=== PATIENT | female | born 1980 | race Caucasian/White ===

== ENCOUNTER → 2020-01-26 13:48 | Outpatient (BNVA) | payer MEDICAID, SELFPAY | PROVIDERS: PCP Family Medicine; Referring Provider Family Medicine; Visit Provider Family Medicine | DX: M25.511 Pain in right shoulder (principal) | CPT/HCPCS: 73030 ==

== ENCOUNTER 2020-08-12 09:57 | Outpatient (CLI) | payer MEDICAID, SELFPAY ==
--- NOTE | 2020-08-12 10:32 | MM_ITS ---
WS: [id number] DIAGNOSTIC BILATERAL DIGITAL MAMMOGRAM WITH CAD Bilateral breast ultrasound, complete HISTORY: PAINFUL LUMPY BREAST COMPARISON: None available. TECHNIQUE: Bilateral craniocaudad, mediolateral oblique, and mediolateral views are submitted. Spot c ompression LEFT CC. Computer aided detection utilized. Breast composition: The breasts are extremely dense, which lowers the sensitivity of mammography. No architectural distortion, mass or calcification. No nipple retraction. Bilateral breast ultrasound. Complete bilateral breast ultrasound is performed. No suspicious masses or shadowing. No cystic or s olid masses or skin thickening. MM/[place] [id number] IMPRESSION: BI-RADS: 1-Negative FOLLOW UP: 1 Year Follow-up
--- NOTE | 2020-08-12 11:00 | US_ITS ---
WS: [id number] DIAGNOSTIC BILATERAL DIGITAL MAMMOGRAM WITH CAD Bilateral breast ultrasound, complete HISTORY: PAINFUL LUMPY BREAST COMPARISON: None available. TECHNIQUE: Bilateral craniocaudad, mediolateral oblique, and mediolateral views are submitted. Spot c ompression LEFT CC. Computer aided detection utilized. Breast composition: The breasts are extremely dense, which lowers the sensitivity of mammography. No architectural distortion, mass or calcification. No nipple retraction. Bilateral breast ultrasound. Complete bilateral breast ultrasound is performed. No suspicious masses or shadowing. No cystic or s olid masses or skin thickening. US/[place] breast [place] complete [id number] IMPRESSION: BI-RADS: 1-Negative FOLLOW UP: 1 Year Follow-up
== END 2020-08-12 09:58 | disposition home or self-care (01) ==
LOC: RADSHAW 09:59
PROVIDERS: PCP Family Medicine; Visit Provider Registered Nurse
DX: N64.4 Mastodynia (principal); N63.20 Unspecified lump in the left breast, unspecified quadrant
CPT/HCPCS: 76641; 77066

== ENCOUNTER 2021-10-03 09:59 | Outpatient (CLI) | payer MEDICAID, SELFPAY | END 2021-10-03 10:00 | disposition home or self-care (01) | LOC: WOUND 10:00 | PROVIDERS: PCP Family Medicine; Visit Provider Emergency Medicine | DX: S61.201A Unspecified open wound of left index finger without damage to nail, initial encounter (principal); X58.XXXA Exposure to other specified factors, initial encounter; F17.210 Nicotine dependence, cigarettes, uncomplicated; I10 Essential (primary) hypertension; E10.9 Type 1 diabetes mellitus without complications | CPT/HCPCS: 11042; G0463 ==

== ENCOUNTER 2021-10-10 09:48 | Outpatient (CLI) | payer MEDICAID, SELFPAY | END 2021-10-10 09:49 | disposition home or self-care (01) | LOC: WOUND 09:49 | PROVIDERS: PCP Family Medicine; Visit Provider Nurse Practitioner Family | DX: I96 Gangrene, not elsewhere classified (principal); L98.492 Non-pressure chronic ulcer of skin of other sites with fat layer exposed; F17.210 Nicotine dependence, cigarettes, uncomplicated; E10.9 Type 1 diabetes mellitus without complications; I10 Essential (primary) hypertension | CPT/HCPCS: 11042 ==

== ENCOUNTER 2021-10-24 08:10 | Outpatient (CLI) | payer MEDICAID, SELFPAY | END 2021-10-24 08:11 | disposition home or self-care (01) | LOC: WOUND 08:11 | PROVIDERS: PCP Family Medicine; Visit Provider Thoracic Surgery (Cardiothoracic Vascular Surgery) | DX: I96 Gangrene, not elsewhere classified (principal); L98.492 Non-pressure chronic ulcer of skin of other sites with fat layer exposed; F17.210 Nicotine dependence, cigarettes, uncomplicated; E10.9 Type 1 diabetes mellitus without complications; I10 Essential (primary) hypertension | CPT/HCPCS: 97597 ==

== ENCOUNTER 2021-10-31 08:12 | Outpatient (CLI) | payer MEDICAID, SELFPAY | END 2021-10-31 08:13 | disposition home or self-care (01) | LOC: WOUND 08:13 | PROVIDERS: PCP Family Medicine; Visit Provider Thoracic Surgery (Cardiothoracic Vascular Surgery) | DX: A49.02 Methicillin resistant Staphylococcus aureus infection, unspecified site (principal); L98.492 Non-pressure chronic ulcer of skin of other sites with fat layer exposed; F17.210 Nicotine dependence, cigarettes, uncomplicated; E10.9 Type 1 diabetes mellitus without complications | CPT/HCPCS: 97597 ==

== ENCOUNTER → 2023-02-24 11:07 | Outpatient (BNVA) | payer MEDICAID, SELFPAY | PROVIDERS: PCP Family Medicine; Visit Provider Nurse Practitioner | DX: R39.9 Unspecified symptoms and signs involving the genitourinary system (principal) | CPT/HCPCS: 81000 ==

== ENCOUNTER → 2023-04-18 10:24 | Outpatient (BNVA) | payer MEDICAID, SELFPAY | PROVIDERS: PCP Family Medicine; Visit Provider Nurse Practitioner Family | DX: Z20.2 Contact with and (suspected) exposure to infections with a predominantly sexual mode of transmission (principal) | CPT/HCPCS: 87491; 87591 ==

== ENCOUNTER → 2023-06-20 11:02 | Outpatient (BNVA) | payer MEDICAID, SELFPAY | PROVIDERS: PCP Family Medicine; Visit Provider Emergency Medicine | DX: M79.671 Pain in right foot (principal); E11.621 Type 2 diabetes mellitus with foot ulcer; L97.509 Non-pressure chronic ulcer of other part of unspecified foot with unspecified severity | CPT/HCPCS: 73630 ==

== ENCOUNTER 2023-07-02 09:22 | Inpatient (IN) | payer MEDICAID, SELFPAY ==
[2023-07-02] VITALS (23 sets, daily range): BP systolic 118–201; BP diastolic 62–119; PULSE 70–89; RESP 10–22; TEMP 36.2–36.6; O2SAT 94–100; BMI 24.3
--- NOTE | 2023-07-02 09:31 | XRR_ITS ---
PROCEDURE INFORMATION: Exam: XR Right Foot Exam date and time: 07/02/2023 9:42 AM Age: 43 years old Clinical indication: Condition or disease; Other: Open sore on RT foot; Additional info: Trauma TECHNIQUE: Imaging protocol: Radiologic exam of the right foot. Views: 3 or more views. COMPARISON: 1. CR XR foot RT min 3V* [id number] 06/20/2023 11:13 AM 2. CR XR foot RT min 3V* [id number] 01/28/2019 4:47 PM FINDINGS: Bones/joints: No acute fracture or dislocation. Stable chronic appearing destructive changes with sclerosis and fragmentation at the great toe IP joint. Abnormal cystic and sclerotic destruction of the distal 3rd metatarsal is also stable, as is remodeled morphology at the proximal 3rd proximal phalanx and mild chronic erosion/flattening of the lateral 2nd metatarsal head and medial 4th metatarsal head. Appearance of distal phalangeal acro osteolysis on the lateral view is also redemonstrated. Chronic flexion deformity of the 2nd toe and medial deviation of the 4th toe. No new focal osteopenia. Soft tissues: Soft tissue contour irregularity at a distal toe on the lateral view. XR/XR foot RT min 3V* [id number] IMPRESSION: 1. No acute osseous findings. 2. Chronic abnormal changes as above.
--- NOTE | 2023-07-02 09:31 | XRR_ITS ---
PROCEDURE INFORMATION: Exam: XR Right Ankle Exam date and time: 07/02/2023 9:42 AM Age: 43 years old Clinical indication: Condition or disease; Other: Open sore on RT foot; Additional info: Trauma TECHNIQUE: Imaging protocol: Radiologic exam of the right ankle. Views: 3 or more views. COMPARISON: CR XR foot RT min 3V* [id number] 06/20/2023 11:13 AM FINDINGS: Bones/joints: No acute fracture or dislocation. Mineralization is normal. Joint spacing and alignment are anatomic. Soft tissues: Unremarkable. XR/XR ankle RT min 3V* [id number] IMPRESSION: No acute findings.
--- NOTE | 2023-07-02 09:37 | ECG_ITS ---
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 Measurements Intervals [place] Rate: 81 P: 61 RI: 139 QRS: -56 QRSD: 97 T: 45 QT: 365 QTc: 424 Interpretive Statements SINUS RHYTHM LEFT ANTERIOR FASCICULAR BLOCK [QRS AXIS <= -45, QR IN I, RS IN II] POSSIBLE ANTERIOR MYOCARDIAL INFARCTION , OF INDETERMINATE AGE [30 ms Q WAVE IN V3/V4, OR R < 0.2 mV IN V4] Compared to ECG 09/04/2019 10:06:54 Myocardial infarct finding now present Incomplete right bundle-branch block no longer present Electronically Signed On 07-02-2023 12:00:38 CDT by Lazara Cabrera M.D. [id number]
[2023-07-02 10:01] LABS: Amphetamines Screen Urine Negative (Negative); Barbiturates Screen Urine Negative (Negative); Benzodiazepines Screen Urine Negative (Negative); Cocaine Screen Urine Negative (Negative); Opiate Screen Urine Negative (Negative); PCP Screen Urine Negative (Negative); THC Screen Urine Positive (Negative)
--- NOTE | 2023-07-02 10:10 | ED_ITS ---
HPI - Wound/Laceration General: Chief Complaint: Wound/Laceration Stated Complaint: RT foot inj Time Seen by Provider: 07/02/23 09:22 Source: patient Mode of arrival: wheelchair History of Present Illness: 43-year-old female presents emergency room with right foot pain. She states about 2 weeks ago she stepped on a stone and had a little injuries she was seen for it and evaluated there is no acute fracture or infection this is on June 20. Since then she has been soaking and Epsom salt is gotten red and inflamed increasingly tender. She has some drainage from the foot as well. On arrival here she has a bandage in place. She has had subjective low-grade fevers at home. Previous x-rays showed chronic changes of the distal third metatarsal and the first MP joint. Onset (ago): week(s) (2) Extremity Location: Right: foot Context: accidental Associated symptoms: Reports chills, fever(s) and pain; Denies nausea or vomiting Review of Systems Const: Reports: fever(s) and chills Card: Reports: edema; Denies: chest pain or palpitations Resp: Denies: dyspnea, productive cough or non-productive cough GI: Denies: abdominal pain, nausea or vomiting : Denies: flank pain, difficulty voiding, dysuria, urinary frequency or urinary urgency Skin/Breast: Denies: rash or pruritus [facility] ED PFSH: Medical History (Updated 07/02/23 @ 12:08 by Dennis James DO) Diabetic neuropathy Type 1 diabetes mellitus Social History Smoking and tobacco status: current every day smoker cigarettes Packs smoked per day: 1 Alcohol intake: never Substance/Drug Use: never Physical Exam Const: GENERAL APPEARANCE: cooperative and comfortable ORIENTATION/CONSCIOUSNESS: Yes awake, Yes oriented to person, Yes oriented to place and Yes oriented to time HENMT: COMMON NORMALS: normocephalic, atraumatic and hearing grossly normal bilaterally HEAD & SCALP: normocephalic and atraumatic Resp: COMMON NORMALS: normal respiratory effort, No retractions, No use of accessory muscles and clear to auscultation bilaterally AUSCULTATION: clear to auscultation bilaterally Cardio: COMMON NORMALS: regular rate, regular rhythm and No murmurs present (Cardio) RATE: regular rate RHYTHM: regular rhythm GI: COMMON NORMALS: Soft to palpation and No hepatosplenomegaly present AUSCULTATION: Yes normoactive bowel sounds PALPATION: Yes Soft to palpation, No Tenderness to palpation present (GI), No Guarding due to palpation present (GI) and Yes No hepatosplenomegaly present Extremity: OTHER: Right foot red and inflamed along the medial aspect of the foot at the arch. There is several open macerated wounds with serous drainage no noticeable abscesses. There are some localized erythema with some proximal lymphangitic spread. Dorsalis pedis and posterior tibialis pulse palpable Neuro: SENSORIUM/ORIENTATION: Yes oriented to person, Yes oriented to place a nd Yes oriented to time Skin: COMMON NORMALS: no rashes or lesions noted GENERAL SKIN EXAM: no rashes or lesions noted Course Vital Signs: Vital signs: Vital Signs Pulse Rate 89 07/02/23 09:37 Respiratory Rate 18 07/02/23 09:37 Blood Pressure 201/100 07/02/23 09:37 Pulse Oximetry 98 07/02/23 09:37 Oxygen Delivery Me thod Room Air 07/02/23 09:37 MDM - Wound/Laceration Medical Decision Making Patient has a fairly extensive cellulitis of her foot with some open areas or some small will may be superficial abscesses. Podiatry was consulted to evaluate debriding these to get cultures. Blood cultures have been obtained. She is immunocompromise given the medications she is taking for psoriatic arthritiis, in addition to her diabetes. She does have good peripheral pulses. Her CRP is only 6.5 we did not do any advanced imaging we will consult with hospitalist and podiatry to see what they prefer to get she has had cultures and started initially on vancomycin. She initially listed a penicillin allergy Dr. Arana talk to the patient and felt that that was not actually a valid allergy she had previously taken penicillin rather recently without difficulty so that was removed from the chart. She is started on Unasyn (in addition to vancomycin) out of concern for the skin abscesses at 2 different sites. Medical Records I reviewed the patient's medical records. Lab Data I reviewed the patient's lab results. 07/02/23 09:55 07/02/23 09:55 Radiology Impressions Ankle X-Ray 07/02/23 09:31 IMPRESSION: No acute findings. Foot X-Ray 07/02/23 09:31 IMPRESSION: 1. No acute osseous findings. 2. Chronic abnormal changes as above. Laboratory Results WBC 10.9 10^3/uL (4.0-10.0) H 07/02/23 09:55 RBC 5.20 10^6/uL (4.1-5.3) 07/02/23 09:55 Hgb 14.4 g/dL (11.5-15.3) 07/02/23 09:55 Hct 44.7 % (37.0-47.0) 07/02/23 09:55 MCV 86.0 fl (81-99) 07/02/23 09:55 MCH 27.7 pg (28.0-34.0) L 07/02/23 09:55 MCHC 32.2 g/dL (30.0-36.0) 07/02/23 09:55 RDW 13.7 % (12.1-15.1) 07/02/23 09:55 Plt Count 377 10^3/cmm (130-400) 07/02/23 09:55 MPV 10.4 fL (7.4-10.4) 07/02/23 09:55 Neut % (Auto) 72.8 % 07/02/23 09:55 Lymph % (Auto) 17.8 % 07/02/23 09:55 [place] % (Auto) 5.6 % 07/02/23 09:55 Eos % (Auto) 2.0 % 07/02/23 09:55 Baso % (Auto) 1.1 % 07/02/23 09:55 Neut # (Auto) 7.90 10^3/uL (1.8-7.7) H 07/02/23 09:55 Lymph # (Auto) 1.9 10^3/uL (0.8-4.8) 07/02/23 09:55 [place] # (Auto) 0.6 10^3/uL (0.2-0.9) 07/02/23 09:55 Eos # (Auto) 0.2 10^3/uL (0.0-0.8) 07/02/23 09:55 Baso # (Auto) 0.1 10^3/uL (0.0-0.1) 07/02/23 09:55 Nucleated RBC % (auto) 0 % 07/02/23 09:55 Nucleated RBCs # 0.0 /100WBC 07/02/23 09:55 Sodium 132 mmol/L (136-145) L 07/02/23 09:55 Potassium 4.8 mmol/L (3.5-5.1) 07/02/23 09:55 Chloride 95 mmol/L (98-107) L 07/02/23 09:55 Carbon Dioxide 29 mmol/L (22-29) 07/02/23 09:55 Anion Gap 12.8 (5-19) 07/02/23 09:55 BUN 21 mg/dL (6-20) H 07/02/23 09:55 Creatinine 1.2 mg/dL (0.5-0.9) H 07/02/23 09:55 GFR Calculation 49.0 mL/min (90-130) L 07/02/23 09:55 Glucose 188 mg/dL (65-115) H 07/02/23 09:55 Calculated Osmolality 282 mOsm/kg (285-295) L 07/02/23 09:55 Lactic Acid 1.2 mmol/L (0.5-2.2) 07/02/23 09:55 Calcium 9.8 mg/dL (8.5-10.5) 07/02/23 09:55 Total Bilirubin 0.2 mg/dL (0.15-1.2) 07/02/23 09:55 AST 24 U/L (0-32) 07/02/23 09:55 ALT 22 U/L (0-33) 07/02/23 09:55 Alkaline Phosphatase 110 U/L (35-105) H 07/02/23 09:55 C-Reactive Protein 6.6 mg/L (0.0-4.9) H 07/02/23 09:55 C-Reactive Protein Cancelled 07/02/23 09:55 Total Protein 8.0 g/dL (6.6-8.7) 07/02/23 09:55 Albumin 4.1 g/dL (3.5-5.2) 07/02/23 09:55 Globulin 3.9 g/dL (1.3-4.6) 07/02/23 09:55 Urine Color Yellow (Yellow) 07/02/23 09:30 Urine Appearance Sl hazy (CLEAR) A 07/02/23 09:30 Urine pH 7 (5-7) 07/02/23 09:30 Ur Specific [place] 1.005 (1.005-1.030) 07/02/23 09:30 Urine Protein Trace (Negative) 07/02/23 09:30 Urine Glucose (UA) 2+ (Normal) H 07/02/23 09:30 Urine Ketones Negative (Negative) 07/02/23 09:30 Urine Blood Trace (Negative) H 07/02/23 09:30 Urine Nitrate Negative (Negative) 07/02/23 09:30 Urine Bilirubin Neg (Negative) 07/02/23 09:30 Urine Urobilinogen Norm mg/dL (Negative) 07/02/23 09:30 Ur Leukocyte Esterase Negative (Negative) 07/02/23 09:30 Urine RBC 0-4 /hpf (0-2) H 07/02/23 09:30 Urine WBC 0-4 /hpf (0-5) H 07/02/23 09:30 Ur Squamous Epith Cells 5-10 /hpf (0-5) H 07/02/23 09:30 Amorphous Sediment Not Reportable 07/02/23 09:30 Urine Bacteria Trace /hpf (NONE) 07/02/23 09:30 Urine Mucus Trace /hpf 07/02/23 09:30 Urine Opiates Screen Negative ng/mL (Negative) 07/02/23 09:30 Ur Barbiturates Screen Negative ng/mL (Negative) 07/02/23 09:30 Ur Phencyclidine Scrn Negative ng/mL (Negative) 07/02/23 09:30 Ur Amphetamines Screen Negative ng/mL (Negative) 07/02/23 09:30 U Benzodiazepines Scrn Negative ng/mL (Negative) 07/02/23 09:30 Urine Cocaine Screen Negative ng/mL (Negative) 07/02/23 09:30 U Marijuana (THC) Screen Positive ng/mL (Negative) H 07/02/23 09:30 Discharge Plan Discharge Patient Disposition: Admitted As Inpatient Clinical Impression: Diabetic foot infection, Type 1 diabetes mellitus, Abscess of antecubital fossa Condition: Stable Prescriptions: No Action Lantus Solostar U-100 Insulin 100 unit/mL (3 mL) insulin pen 30 unit SUBCUT DAILY Rx Instructions: every morning (DME) InPen (for Novolog or Fiasp) Insulin Pen See Rx Instructions .ROUTE .MEDSUPPLY Qty: 1 Rx Instructions: As directed gabapentin 600 mg tablet 600 mg PO TID Novolog FlexPen U-100 Insulin 100 unit/mL (3 mL) insulin pen See Rx Instructions .ROUTE .COMPLEX Rx Instructions: PER SLIDING SCALE THREE TIMES DAILY NEEDED. MAX 45 UNITS DAILY leflunomide 20 mg tablet 20 mg PO DAILY metoclopramide HCl 10 mg tablet 10 mg PO TID Rx Instructions: BEFORE MEALS ibuprofen 200 mg Tablet 800 mg PO Q6H PRN (Reason: Pain) levothyroxine 125 mcg tablet 150 mcg PO .CLINICAL PARTNER Referrals: Latha Tsang DO [Primary Care Provider] - Coding Level of Care Code ED Program Director/Music Director for Maryjo Junior
[2023-07-02 10:18] LABS: Add Urine Microscopic? YES; Bilirubin Urine Neg (Negative); Blood Urine Trace (Negative); Glucose Urine UA 2+ (Normal); Ketones Urine Negative (Negative); Leukocyte Esterase Urine Negative (Negative); Nitrate Urine Negative (Negative); Protein Urine Trace (Negative); Specific Gravity, Urine 1.005 (1.005-1.030); Urine Color Yellow (Yellow); Urobilinogen Urine Norm (Negative); pH Urine 7 (5-7)
[2023-07-02 10:19] LABS: Add Urine Culture? No; Bacteria Urine TRACE /hpf; Mucus Urine TRACE /hpf; RBC Urine 0-4 /hpf (0-2); Urine Appearance SL Hazy (CLEAR); WBC Urine 0-4 /hpf (0-5)
[2023-07-02 10:28] LABS: Basophils # 0.1 10^3/uL (0.0-0.1); Basophils % 1.1 %; Eosinophils # 0.2 10^3/uL (0.0-0.8); Hematocrit 44.7 % (37.0-47.0); Hemoglobin 14.4 g/dL (11.5-15.3); Lymphocytes # 1.9 10^3/uL (0.8-4.8); Lymphocytes % 17.8 %; Mean Corpuscular HGB Conc 32.2 g/dL (30.0-36.0); Mean Corpuscular Hemoglobin 27.7 pg (28.0-34.0); Mean Platelet Volume 10.4 fL (7.4-10.4); Monocytes # 0.6 10^3/uL (0.2-0.9); Monocytes % 5.6 %; Neutrophils % 72.8 %; Nucleated Red Blood Cells % 0 %; Platelet Count 377 10^3/cmm (130-400); Red Cell Distribution Width 13.7 % (12.1-15.1); White Blood Count 10.9 10^3/uL (4.0-10.0)
[2023-07-02 10:35] LABS: Lactic Sepsis W/Reflex 1.2 mmol/L (0.5-2.2)
[2023-07-02 10:36] LABS: Alanine Aminotransferase 22 U/L (0-33); Albumin Level 4.1 g/dL (3.5-5.2); Alkaline Phosphatase 110 U/L (35-105); Anion Gap 12.8 (5-19); Aspartate Amino Transferase 24 U/L (0-32); Blood Urea Nitrogen 21 mg/dL (6-20); C Reactive Protein 6.6 mg/L (0.0-4.9); Calcium 9.8 mg/dL (8.5-10.5); Carbon Dioxide 29 mmol/L (22-29); Chloride 95 mmol/L (98-107); Globulin 3.9 g/dL (1.3-4.6); Glucose 188 mg/dL (65-115); Osmolality Calculated 282 mOsm/kg (285-295); Potassium 4.8 mmol/L (3.5-5.1); Sodium 132 mmol/L (136-145); Total Bilirubin 0.2 mg/dL (0.15-1.2)
[2023-07-02] MEDS: ondansetron 2 mg/ML SDV 2 mL 4 MG IVP (10:54)
[2023-07-02] MEDS: vancomycin 1,000 MG in sodium chloride 0.9% 250 ML 250 MG IV (10:55)
[2023-07-02] MEDS: diphenhydrAMINE 50 mg/mL SDV 1mL IVP (11:13)
[2023-07-02] MEDS: morphine 4 mg/mL SDV 1 mL 2 MG IVP (11:13)
--- NOTE | 2023-07-02 11:18 | US_ITS ---
WS: [id number] ULTRASOUND SOFT TISSUES right antecubital fossa. HISTORY: antecubital fossa R COMPARISON: None available. TECHNIQUE: 2-D and color Doppler imaging is submitted. In the right antecubital fossa is a mild soft tissue thickening with edema. This is located within th e subcutaneous soft tissue. Edema with no wall or increased vascularity. IMPRESSION: Subcutaneous edema in the right antecubital fossa. No abscess at this time.
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
[2023-07-02 12:06] LABS: Estmated Average Glucose 229; Hemoglobin A1C 9.6 % (4.0-6.0)
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
[2023-07-02] MEDS: ampicillin-sulbactam 3 GM in sodium chloride 0.9% (plus) 50 ML IV ×2 (13:18→20:19)
[2023-07-02] MEDS: HYDROmorphone 1 mg/mL INJ 1 mL 0.5 MG IVP ×2 (14:44→16:13)
[2023-07-02] MEDS: sodium chloride 0.9% 1,000 ML 30 ML IV (14:46)
[2023-07-02 15:00] LABS: Glucose Point of Care 166 mg/dL (70-110)
--- NOTE | 2023-07-02 15:10 | W.PM.OPSUD ---
Surgery/Procedure H&P Update DATE OF PROCEDURE: July 02, 2023 DATE H&P PERFORMED: 07/02/23 H&P UPDATE INFORMATION: I have reviewed H&P completed within last 30 days, I have examined patient prior to procedure, No changes to prior documentation and H&P is in [facility] EMR on date indicated CHANGES TO PREVIOUS DOCUMENTATION: None PREOP DIAGNOSIS: Right diabetic foot infection PLANNED PROCEDURE: Operation Date: 07/02/23 15:00 Proposed Procedures p Incision And Drainage(Right) - Maverick Bolanos DPM
--- NOTE | 2023-07-02 15:11 | P.OP_ITS ---
Operative Report Date of procedure: July 02, 2023 Pre-op diagnosis: Preop Diagnosis Right diabetic foot infection Post-op diagnosis: Diabetic foot ulcer right foot down to myofascial layer Post-op findings: Cluster wounds at the right foot plantar instep tracking distal and dorsal. Procedure done: Incision and debridement down to myofascial layer right foot Implants: None Specimens removed/disposition: Deep soft tissue and myofascial layer right plantar foot taken intraoperatively and sent to microbiology for Gram stain, culture and sensitivity. Pathology: None Surgeon: Maverick Bolanos D.P.M. Tape Cutting Machine Operator: none Estimated blood loss: 25 112 IV fluids: 0 Urine output: 0 Complications: 0 Brief History: Alexa Chang is a 43 year old uncontrolled diabetic female presents to the emergency department with complaints of a wound to the right foot with increased redness and drainage, pain and subjective fevers.? She reports the initial wound happened from walking barefoot on rocks the beginning of June.? Wound has progressed and last night she saw a red streaking and began feeling nausea and chills.? Patient has a history of osteomyelitis being managed both medically and surgically at [facility] in [place], history of surgical debridement to the right great toe and right third metatarsal.? She had a piece of toast and something to drink at 7:00 this morning for breakfast, states that she ate very little due to nausea and decreased appetite. -Remain n.p.o. -X-ray right foot negative for foreign body, negative for soft tissue edema.? Stable erosive changes at the right hallux and right third metatarsal from chronic osteomyelitis noncontributory to current infection. -Wound cultures taken right foot sent to microbiology for Gram stain, culture and sensitivity -Betadine wet-to-dry dressing to the right foot. -Planning on surgical debridement of right foot wound at 3:00, this will be 8 hours from the time she last ate. -Empiric IV antibiotics initiated.? May narrow once cultures yield further information. Procedure: Under mild sedation the patient was brought to the operating room and remained on the gurney in supine position. A timeout was performed. Anesthesia was then administered by the anesthesia service. Local anesthesia injected by myself consisting of 30 cc of one-to-one mixture 1% lidocaine and 0.5% Marcaine plain in a right ankle block fashion. Well-padded pneumatic tourniquet was applied to the right high calf. The right lower extremity was scrubbed, prepped and draped utilizing normal aseptic technique. Right foot was elevated and tourniquet inflated to 250 mmHg. Attention was directed to the plantar aspect of the right foot where a cluster of wounds was appreciated, a total of 4 wounds visualized, the most lateral wound corresponding to interspace between third and fourth metatarsals plantarly tracked the furthest, there was tracking distally and superiorly, did not probe directly to bone. The wounds of the right plantar forefoot were sharply and excisionally debrided with pickups and a #15 blade down to and including myofascial layer. Wounds were debrided of devitalized tissue. Postdebridement wound measurements at the most lateral aspect of the plantar forefoot measured 1.2 cm x 1.3 cm and depth was 2.5 cm. There was no tracking proximally. Unable to probe to bone from any of the wounds. Dressing was irrigated with copious amounts of Staticin solution. Deep tissue was taken intraoperatively sharply and sent to microbiology for Gram stain, culture and sensitivity. Further irrigation was performed with copious amounts of sterile skin solution followed by dressing consisting of saline wet-to-dry utilizing sterile saline, 4 x 4 gauze, ABD pad, Kerlix and 4 inch Coban. Tourniquet was deflated and a prompt hyperemic response was noted to the distal digits of the right foot. Patient tolerated the procedure and anesthesia well and was transferred to the PACU with vital signs stable and vascular status intact. Following a period of postoperative monitoring she will be transferred back to the floor. Will continue empiric IV antibiotics. Is to elevate her right foot while resting. Nonweightbearing to the right foot, may heel touch for transfers.
[2023-07-02 15:16] LABS: OR HCG Qualitative Urine Negative (Negative)
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
[2023-07-02] MEDS: lidocaine 2% INJ 20 mL INJECTION (15:34)
[2023-07-02] MEDS: BUPivacaine 0.5% INJ 30 mL INJECTION (15:34)
[2023-07-02] MEDS: fentaNYL 50 mcg/mL INJ 2mL IVP (15:58)
--- NOTE | 2023-07-02 16:12 | PC.NURSE ---
Continues to be in pain. Giving Dilaudid per Dr. Bates
--- NOTE | 2023-07-02 16:13 | ANE.PACU2 ---
Inpatient post-anesthesia follow up: Airway intact: Yes Vital signs: Temperature 97.1 F Pulse Rate 70 Respiratory Rate 22 Blood Pressure 121/78 Pulse Oximetry 100 Oxygen Delivery Me thod Simple Mask Oxygen Flow Rate 8 Fraction of Inspir ed Oxygen Hydration adequate: Yes Nausea and vomiting: No Pain level: 2 Mental status: Baseline
[2023-07-02] MEDS: metoclopramide 10 mg Tablet PO (17:25)
[2023-07-02] MEDS: gabapentin 300 mg Capsule 600 MG PO ×2 (17:26→20:18)
[2023-07-02] MEDS: ALPRAZolam 0.5 mg Tablet PO (17:27)
[2023-07-02] MEDS: docusate sodium 100 mg Capsule PO (17:27)
[2023-07-02] MEDS: morphine 4 mg/mL SDV 1 mL IVP ×2 (17:27→21:55)
[2023-07-02 18:06] LABS: Glucose Point of Care 46 mg/dL (70-110)
[2023-07-02 18:28] LABS: Glucose Point of Care 48 mg/dL (70-110)
[2023-07-02] MEDS: sodium chloride 0.9% 1,000 ML 75 ML IV (18:59)
--- NOTE | 2023-07-02 19:21 | PC.PHAR ---
Patient: Floor: Age: 43 yo Serum creatinine: 1.2 mg/dL Height: 67.7 Inches Weight (kg): 72 IBW (kg): 63.21 Dosing wt(kg): 72 Estimated Creatinine clearance (ml/min): 60.3 CRCL method: Cockcroft and Gault using ibw(default). Drug selected: Vancomycin Loading dose (mg): Vd (liters): 50.4 (factor used: 0.7 L/kg) Alan (hr-1): 0.054 Half life (hrs): 12.84 CLvanco=?? 2.722 L/hr Recommended dose: 1250 mg Interval: 18 hrs Infusion time (hrs): 1 Predicted peak (mcg/mL): 38.8 Predicted trough (mcg/mL): 15.49 Total body weight is being used for vancomycin dosing. Recommendations: Give Vancomycin 1250 mg q 18 hrs with an expected Cpeak of 38.8 mcg/ml and an expected Ctrough of 15.49 mcg/ml AUC 0-24 /NAILA Data: NAILA 0.5 mcg/mL:?? AUC/NAILA:? 1224.6 NAILA 1.0 mcg/mL:?? AUC/NAILA:? 612.3 --------- NAILA 1.5 mcg/mL:?? AUC/NAILA:? 408.2 NAILA 2.0 mcg/mL:?? AUC/NAILA:? 306.1 Renal dosing of other antibiotics (review renal dosing of other medications and list guidelines here): Thank you for the consult, will continue to follow. Signature: Joss Zhu PharmD
[2023-07-02] MEDS: oxyCODONE 5 mg IR Tab/Cap 10 MG PO (20:17)
[2023-07-02] MEDS: sennosides 8.6 mg Tablet 17.2 MG PO (20:18)
[2023-07-02 20:34] LABS: Glucose Point of Care 230 mg/dL (70-110)
[2023-07-02] MEDS: vancomycin 1,250 MG/250 ML PIGGYBACK 200 MG IV (21:55)
[2023-07-02] MEDS: insulin lispro 100 unit/1 mL SUBCUT (21:56)
[2023-07-03] VITALS (15 sets, daily range): BP systolic 112–159; BP diastolic 71–91; PULSE 77–91; RESP 16–18; TEMP 36.4–36.8; O2SAT 96–100
[2023-07-03] MEDS: ampicillin-sulbactam 3 GM in sodium chloride 0.9% (plus) 50 ML IV ×4 (02:25→20:33)
[2023-07-03] MEDS: morphine 4 mg/mL SDV 1 mL IVP ×5 (02:34→20:50)
[2023-07-03 02:39] LABS: Glucose Point of Care 46 mg/dL (70-110)
[2023-07-03 04:19] LABS: Glucose Point of Care 128 mg/dL (70-110)
[2023-07-03 05:10] LABS: Basophils # 0.1 10^3/uL (0.0-0.1); Basophils % 0.8 %; Eosinophils # 0.3 10^3/uL (0.0-0.8); Eosinophils % 2.3 %; Hematocrit 37.1 % (37.0-47.0); Hemoglobin 11.9 g/dL (11.5-15.3); Lymphocytes # 2.1 10^3/uL (0.8-4.8); Lymphocytes % 17.1 %; Mean Corpuscular HGB Conc 32.1 g/dL (30.0-36.0); Mean Corpuscular Hemoglobin 28.2 pg (28.0-34.0); Mean Corpuscular Volume 87.9 fl (81-99); Mean Platelet Volume 10.2 fL (7.4-10.4); Monocytes # 0.7 10^3/uL (0.2-0.9); Neutrophils % 73.2 %; Nucleated Red Blood Cells % 0 %; Platelet Count 304 10^3/cmm (130-400); Red Blood Count 4.22 10^6/uL (4.1-5.3)
[2023-07-03 05:40] LABS: Blood Urea Nitrogen 19 mg/dL (6-20); Calcium 8.3 mg/dL (8.5-10.5); Carbon Dioxide 26 mmol/L (22-29); Chloride 102 mmol/L (98-107); Glomerular Filtration Rate 60.5 mL/min (90-130); Glucose 89 mg/dL (65-115); Magnesium 1.8 mg/dL (1.7-2.3); Osmolality Calculated 284 mOsm/kg (285-295); Phosphorus 4.2 mg/dL (2.5-4.5); Sodium 136 mmol/L (136-145)
[2023-07-03 05:46] LABS: Anion Gap 12.3 (5-19); Potassium 4.3 mmol/L (3.5-5.1)
[2023-07-03] MEDS: sodium chloride 0.9% 1,000 ML 75 ML IV ×2 (05:55→20:33)
[2023-07-03] MEDS: levothyroxine 125 mcg Tablet 150 MCG PO (05:57)
[2023-07-03] MEDS: ibuprofen 800 mg tablet PO ×2 (05:57→22:29)
--- NOTE | 2023-07-03 06:00 | MR_ITS ---
WS: [id number] EXAMINATION: MR foot RT wo/w con [id number] ORDER DATE: 07/03/2023 9:44 AM COMPARISON: Radiograph 07/02/2023 HISTORY: abscess/diabetic foot, underlying bone changes TECHNIQUE: Sagittal T1, sagittal STIR, coronal PD, coronal T2, axial T1, axial T2, and axial PD imagi ng with fat saturation technique. Post gadolinium imaging includes axial T1, coronal T1, and sagittal T1 with fat saturation technique. FINDINGS: Chronic appearing destructive changes with sclerosis and fragmentation involving the first DIP joint. Hammertoe deformities. Erosions with sclerosis involving the third metatarsal head with na rrowing of the third MTP joint. Chronic erosive changes involving the IP joints. Loss of the normal fatty bone marrow signal with destructive changes involving the third metatarsal h ead extending across the MTP joint into the proximal phalanx. Bony changes in this area appear simila r dating back to 2018. Mild enhancement and bone marrow edema in this area suspicious for osteomyelit is. Enhancement in the third MTP joint. Suspect this may be due to chronic or partially treated indol ent osteomyelitis in this area Subcutaneous edema involving the plantar soft tissues. Ulceration along the plantar aspect of the mid foot in the midline. Associated subcutaneous edema and reactive enhancement likely due to inflammator y changes and cellulitis No evidence of drainable abscess or drainable fluid collection. Normal underlying bone marrow signal. Associated skin thickening in the plantar soft tissues with edema. Distal Achilles is normal in appe arance. Normal bone marrow signal in the talus and calcaneus. Plantar soft tissue edema extends into the intertarsal soft tissues. No other acute findings. IMPRESSION: 1. No evidence of drainable abscess or fluid collection. 2. Loss of the normal bone marrow signal with mild bone marrow edema and enhancement involving the t hird metatarsal head extending into the third proximal phalanx. Fluid and enhancement in the MTP join t space. Findings suspicious for osteomyelitis. Suspect findings due to chronic or partially osteomye litis considering bony changes were present dating back to 2018 in this area 3. Cellulitis with soft tissue edema and enhancement along the plantar soft tissues with intertarsal extension. 4. No other evidence of osteomyelitis. 5. Additional chronic changes described above
[2023-07-03 06:21] LABS: Glucose Point of Care 216 mg/dL (70-110)
[2023-07-03] MEDS: oxyCODONE 5 mg IR Tab/Cap 10 MG PO ×3 (06:48→20:09)
--- NOTE | 2023-07-03 07:27 | P.PN_ITS ---
Subjective Subjective: Patient seen bedside this morning. Denies any acute events overnight. 1 day status post incision and debridement down to myofascial layer right foot secondary to diabetic foot infection. Has pain when she bears weight to go to the bathroom otherwise she is comfortable. Patient denies any subjective nausea, vomiting, fever, chills, shortness of breath or chest pain. Vitals/I&O/Wt Last Vital Signs Temp 97.8 F 07/03/23 03:57 Pulse 81 07/03/23 03:57 Resp 18 07/03/23 06:48 BP 112/71 07/03/23 03:57 Pulse Ox 96 07/03/23 06:48 O2 Del Method Room Air 07/03/23 03:57 O2 Flow Rate 8 07/02/23 16:00 07/02/23 07/03/23 07/03/23 22:59 06:59 14:59 Intake Total 1682.0 / 1732.0 1120 / 2852.0 Output Total 25 / 25 Balance 1657.0 / 1707.0 1120 / 2827.0 Weight last 48 hrs Weight 160 lb Physical Exam Narrative: GENERAL: Patient is alert and oriented ?3 and in no acute distress. The following is a focused bilateral lower extremity exam. VASCULAR: Dorsalis pedis palpable +2 left and right foot. Posterior tibial arteries +2. Capillary refill time less than 3 seconds to the distal hallux bilaterally. Calf is supple and nontender proximally and distally. Mild decrease in pedal hair growth. Focal edema to the right foot at the level of the instep. NEUROLOGICAL: Protective sensation diminished bilateral foot. DERMATOLOGICAL: Cluster of wounds down to myofascial layer at the starting at the instep of the right foot coursing laterally across the right midfoot. Macerated margins, largely fibrotic base, erythema nearly resolved, no proximal lymphangitic streaking. Hyperkeratosis at the distal tuft of the right great toe. Grade 2 wound at the distal tuft of the right fourth toe without drainage. No soft tissue crepitus on palpation. Cicatrix to the right great toe and dorsal aspect of the right forefoot from previous surgeries. MUSCULOSKELETAL: Pes planus foot type. No soft tissue crepitus on palpation to the right foot. Hallux malleus to the right that is nonreducible. Hammertoe contractures of digits 2, 3, 4, 5 right foot, right fourth toe is most severe with triplane component. Data 07/03/23 05:00 07/03/23 05:00 Micro: Microbiology 07/02/23 12:35 Gram Stain - Final Other Source 07/02/23 10:27 Blood Culture - Preliminary Blood SPECIMEN COLLECTED 07/02/23 09:55 Blood Culture - Preliminary Blood SPECIMEN COLLECTED A&P Assessment and plan (1) Type 1 diabetes mellitus: (2) Smoking: (3) Immunocompromised state due to drug therapy: (4) Diabetic foot infection: (5) Cellulitis of right foot: (6) Chronic osteomyelitis of right foot: Plan 43-year-old patient with wound probes to myofascial layer at the instep of the right foot with surrounding erythema and purulent drainage. A1c 9.6. 1 day status post incision and debridement right foot down to myofascial layer. Date of operation 07/02/2023. Deep tissue cultures taken intraoperatively are pending During surgical debridement wound was found to be tracking distal and dorsal towards the head of the third metatarsal, suspicion that chronic osteo may have presented with acute eruption. Ordering MRI with and without contrast for further eval. Will likely require PICC line and 6 weeks of antibiotics, will discuss with hospitalist pending MRI findings. Dispensed cam boot right lower extremity may heel touch for transfers Continue 3 times daily saline wet-to-dry dressing changes right foot. Podiatry will follow Attestations Medical Necessity Statement*: Right diabetic foot infection Coding Level of Care Code Acute Code for [facility] Fwd Diagnoses Type 1 diabetes mellitus E10.9 Smoking F17.200 Immunocompromised state due to drug therapy D84.821; Z79.899 Diabetic foot infection E11.628; L08.9 Cellulitis of right foot L03.115 Chronic osteomyelitis of right foot M86.671
[2023-07-03] MEDS: gabapentin 300 mg Capsule 600 MG PO ×3 (08:09→20:37)
[2023-07-03] MEDS: metoclopramide 10 mg Tablet PO ×2 (08:09→13:59)
[2023-07-03] MEDS: docusate sodium 100 mg Capsule PO ×2 (08:09→18:02)
[2023-07-03] MEDS: insulin lispro 100 unit/1 mL SUBCUT ×2 (08:10→18:03)
[2023-07-03] MEDS: insulin glargine 100 units/1 mL 30 UNIT SUBCUT (08:10)
--- NOTE | 2023-07-03 10:14 | PM.PN ---
Subjective Subjective: Patient reports pain is well controlled. Reports appetite is okay. Denies fevers, chills, nausea or emesis. Medications: Reviewed: Yes Vitals/I&O/Wt Last Vital Signs Temp 97.9 F 07/03/23 08:00 Pulse 80 07/03/23 08:00 Resp 18 07/03/23 08:29 BP 117/75 07/03/23 08:00 Pulse Ox 96 07/03/23 08:00 O2 Del Method Room Air 07/03/23 08:00 O2 Flow Rate 8 07/02/23 16:00 07/02/23 07/03/23 07/03/23 22:59 06:59 14:59 Intake Total 1682.0 / 1732.0 1120 / 2852.0 530 / 530 Output Total Balance 1657.0 / 1707.0 1120 / 2827.0 530 / 530 Weight last 48 hrs Weight 72.575 kg Physical Exam Narrative: General: Patient is awake and alert. Lying in bed. Head: Normocephalic. Atraumatic. EOM intact. Neck: No JVD. Cardiovascular: RRR. No gallops. No murmurs. Lungs: Clear to auscultation, no use of accessory muscles, no crackles or wheezes. Skin: No jaundice. Abdomen: Normal bowel sounds, abdomen soft and nontender. Extremities: No cyanosis or clubbing. Musculoskeletal: Right foot is wrapped in bandage. Right proximal forearm with area of erythema and swelling. Neurological: Moves all 4 extremities. No myoclonus. Data 07/03/23 05:00 07/03/23 05:00 Micro: Microbiology 07/02/23 09:55 Blood Culture - Preliminary Blood NEGATIVE TO DATE 07/02/23 12:35 Gram Stain - Final Other Source 07/02/23 10:27 Blood Culture - Preliminary Blood SPECIMEN COLLECTED A&P Assessment and plan (1) Diabetic foot infection: Status post surgical intervention per by podiatry Podiatry following, appreciate recommendation Follow cultures Continue broad-spectrum antibiotics with vancomycin and Unasyn Imaging reviewed MRI ordered Fall precautions Continue IV fluids (2) Abscess of antecubital fossa: Ultrasound reviewed Antibiotics as above (3) Elevated blood pressure reading without diagnosis of hypertension: Without history hypertension Monitor blood pressure closely (4) Type 1 diabetes mellitus: Type 1 diabetes melitis, uncontrolled with hyperglycemia with A1c of 9.6 Associated with diabetic neuropathy, gastroparesis Continue Lantus Sliding-scale insulin correction (5) Psoriatic arthritis: Leflonimide on hold (6) Immunocompromised state due to drug therapy: On Leflonimide prior to admission for psoriatic arthritis (7) Gastroparesis: Continue Reglan (8) Hypothyroidism: Continue Synthroid (9) Smoking: Would benefit from cessation Continue with nicotine patch Plan DVT prophylaxis: SCD CODE STATUS: Full code Attestations Medical Necessity Statement*: Patient requires ongoing hospitalization for IV antibiotics, MRI, and supportive care. Coding Level of Care Code Acute Code for [facility] Fwd Diagnoses Diabetic foot infection E11.628; L08.9 Abscess of antecubital fossa L02.419 Elevated blood pressure reading without diagnosis of hypertension R03.0 Type 1 diabetes mellitus E10.9 Psoriatic arthritis L40.50 Immunocompromised state due to drug therapy D84.821; Z79.899 Gastroparesis K31.84 Hypothyroidism E03.9 Smoking F17.200
[2023-07-03] MEDS: gadobenate dimeglumine 20 mL vial IV (11:02)
[2023-07-03 11:25] LABS: Glucose Point of Care 38 mg/dL (70-110)
[2023-07-03 16:45] LABS: Glucose Point of Care 215 mg/dL (70-110)
[2023-07-03] MEDS: vancomycin 1,250 MG/250 ML PIGGYBACK 200 MG IV (17:06)
[2023-07-03 20:20] LABS: Glucose Point of Care 57 mg/dL (70-110)
[2023-07-03] MEDS: sennosides 8.6 mg Tablet 17.2 MG PO (20:38)
[2023-07-03 21:41] LABS: Glucose Point of Care 89 mg/dL (70-110)
[2023-07-03] MEDS: ondansetron 2 mg/ML SDV 2 mL 4 MG IVP (23:22)
[2023-07-03 23:28] LABS: Glucose Point of Care 89 mg/dL (70-110)
[2023-07-04] VITALS (15 sets, daily range): BP systolic 144–194; BP diastolic 82–89; PULSE 74–86; RESP 15–18; TEMP 36.4–36.9; O2SAT 96–99
[2023-07-04] MEDS: morphine 4 mg/mL SDV 1 mL IVP ×6 (00:55→23:02)
[2023-07-04] MEDS: ampicillin-sulbactam 3 GM in sodium chloride 0.9% (plus) 50 ML IV ×4 (02:01→20:12)
[2023-07-04] MEDS: oxyCODONE 5 mg IR Tab/Cap 10 MG PO ×4 (02:58→21:25)
[2023-07-04 03:01] LABS: Glucose Point of Care 181 mg/dL (70-110)
[2023-07-04] MEDS: ibuprofen 800 mg tablet PO ×3 (04:30→20:14)
[2023-07-04] MEDS: levothyroxine 150 mcg Tablet PO (05:48)
--- NOTE | 2023-07-04 06:36 | PM.PN ---
Subjective Subjective: Patient seen bedside this morning. Denies any pain at the right foot. No acute in vents overnight. Vitals/I&O/Wt Last Vital Signs Temp 97.5 F L 07/04/23 04:00 Pulse 74 07/04/23 04:00 Resp 16 07/04/23 05:59 BP 144/87 07/04/23 04:00 Pulse Ox 99 07/04/23 04:00 O2 Del Method Room Air 07/04/23 04:00 O2 Flow Rate 8 07/02/23 16:00 07/03/23 07/03/23 07/04/23 14:59 22:59 06:59 Intake Total 1060 / 1060 2690 / 3750 1050 / 4800 Output Total 1999 / 1999 Balance 1060 / 1060 2690 / 3750 -950 / 2800 Weight last 48 hrs Weight 160 lb Physical Exam Narrative: GENERAL: Patient is alert and oriented ?3 and in no acute distress. The following is a focused bilateral lower extremity exam. VASCULAR: Dorsalis pedis palpable +2 left and right foot. Posterior tibial arteries +2. Capillary refill time less than 3 seconds to the distal hallux bilaterally. Calf is supple and nontender proximally and distally. Mild decrease in pedal hair growth. Focal edema to the right foot at the level of the instep. NEUROLOGICAL: Protective sensation diminished bilateral foot. DERMATOLOGICAL: Cluster of wounds down to myofascial layer at the starting at the instep of the right foot coursing laterally across the right midfoot. Macerated margins, largely fibrotic base, erythema nearly resolved, no proximal lymphangitic streaking. Hyperkeratosis at the distal tuft of the right great toe. Grade 2 wound at the distal tuft of the right fourth toe without drainage. No soft tissue crepitus on palpation. Cicatrix to the right great toe and dorsal aspect of the right forefoot from previous surgeries. MUSCULOSKELETAL: Pes planus foot type. No soft tissue crepitus on palpation to the right foot. Hallux malleus to the right that is nonreducible. Hammertoe contractures of digits 2, 3, 4, 5 right foot, right fourth toe is most severe with triplane component. Data 07/03/23 05:00 07/03/23 05:00 Micro: Microbiology 07/02/23 12:35 Gram Stain - Final Other Source Wound Culture - Preliminary Coag positive Staphylococcus 07/02/23 15:43 Gram Stain - Final Foot - #1 Tissue Culture - Preliminary Coag positive Staphylococcus 07/02/23 10:27 Blood Culture - Preliminary Blood NEGATIVE TO DATE 07/02/23 09:55 Blood Culture - Preliminary Blood NEGATIVE TO DATE A&P Assessment and plan (1) Type 1 diabetes mellitus: (2) Smoking: (3) Immunocompromised state due to drug therapy: (4) Diabetic foot infection: (5) Cellulitis of right foot: (6) Chronic osteomyelitis of right foot: Plan 43-year-old patient with wound probes to myofascial layer at the instep of the right foot with surrounding erythema and purulent drainage. A1c 9.6. 2 days status post incision and debridement right foot down to myofascial layer. Date of operation 07/02/2023. Deep tissue cultures taken intraoperatively are pending. Showing Staph aureus, no sensitivities posted MRI shows chronic osteomyelitis at the right great toe as well as at the right third metatarsal head involving the third metatarsophalangeal joint. Discussed need for PICC line with hospitalist, we are both in agreement PICC line would be beneficial at discharge and to be arranged with home health. Consulting infectious disease for antibiotic selection. Dispensed cam boot right lower extremity may heel touch for transfers Twice daily dressing changes silver alginate, sterile 4 x 4 gauze, Kerlix and Wesley wrap. Podiatry will follow Attestations Medical Necessity Statement*: Right diabetic foot infection Coding Level of Care Code Acute Code for [employer] [facility] [employer] Fwd Diagnoses Type 1 diabetes mellitus E10.9 Smoking F17.200 Immunocompromised state due to drug therapy D84.821; Z79.899 Diabetic foot infection E11.628; L08.9 Cellulitis of right foot L03.115 Chronic osteomyelitis of right foot M86.671
[2023-07-04 06:51] LABS: Glucose Point of Care 226 mg/dL (70-110)
[2023-07-04 07:25] LABS: Glucose Point of Care 251 mg/dL (70-110)
[2023-07-04] MEDS: insulin glargine 100 units/1 mL 18 UNIT SUBCUT (07:56)
[2023-07-04] MEDS: insulin lispro 100 unit/1 mL SUBCUT ×2 (07:57→17:57)
[2023-07-04] MEDS: gabapentin 300 mg Capsule 600 MG PO ×3 (07:57→20:13)
[2023-07-04] MEDS: docusate sodium 100 mg Capsule PO ×2 (07:57→17:57)
[2023-07-04] MEDS: metoclopramide 10 mg Tablet PO ×3 (08:02→20:14)
[2023-07-04] MEDS: sodium chloride 0.9% 1,000 ML 75 ML IV ×2 (08:02→20:26)
[2023-07-04 08:58] LABS: Glucose Point of Care 226 mg/dL (70-110)
[2023-07-04 10:09] LABS: Glucose Point of Care 53 mg/dL (70-110)
[2023-07-04] MEDS: vancomycin 1,250 MG/250 ML PIGGYBACK 200 MG IV (10:16)
--- NOTE | 2023-07-04 10:56 | PC.CHAP ---
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 [] Patient/Family/Request visit [] Outpatient visit [] Follow-up visit [] Physician referral [] Code/Alert [x] Routine visit [] Staff referral [] Actively dying [] Patient sleeping [] Family support [] [] Out of room [] Palliative care [] [x] Receiving care in room [] Pre-surgical visit [] Trauma [] Long length of stay [] ICU visit [] Other: Relational/Emotional Strength [x] Patient feels connected with others/family/visitors/staff [] Distress [] Loneliness/isolation [] Abandonment Spirituality of Patient [x] Person of Shae [] Attends Zoroastrianism of their Shae [x] Believes in Prayer [] Reads Bible or Caodaism materials [] There are Spiritual issues to be addressed Distribution Coordinator Interventions [x] Prayer [x] Active listening [x] Non-anxious presence [x] Spiritual/emotional support [] Crisis/trauma care [x] Spiritual counseling [] Bereavement support [] Provided bereavement packet [] Provided Bible/devotional materials [] Provided toy/stuffed animal, coloring book to patient or family member [] Provided Communion [] Anointing/Cross [] Salvation [x] Completed spiritual assessment [] Other: Impact on Illness or Injury [] Angry [] Fearful [] Anxious [] Often cries [] Exhaustion [] Unable to work [] Unable to attend mormon [] Unable to walk/stand [] Unable to read [] Unable to drive [] Unable to eat/drink [] Unable to sleep [] Unable to be with family [] Patient intubated [] Other: Summary proceeduer feeling better going home Time spent with patient 10 mins
[2023-07-04 11:13] LABS: Glucose Point of Care 60 mg/dL (70-110)
[2023-07-04 12:11] LABS: Glucose Point of Care 95 mg/dL (70-110)
--- NOTE | 2023-07-04 15:28 | P.PN_ITS ---
Subjective Subjective: Patient denies any pain at rest in her foot. Does report pain on weight bearing but states she is satisfied with current pain regimen. Denies fevers, chills, nausea, or night sweats. Reports she has not smoked cigarettes since being admitted. We discussed smoking cessation. She has a strong desire to quit smoking. She acknowledges the harmful effects on her health. She states that she is never quit smoking before wants to try to quit smoking cold turkey. She has plans to quit when she goes home. She is pleased that she has not had any cravings. I did discuss the social and repetitive habits of smoking in addition to the pharmacological addiction to nicotine. Advised that she quit smoking and discussed the benefits on her health of quitting. Medications: Reviewed: Yes Vitals/I&O/Wt Last Vital Signs Temp 97.8 F 07/04/23 11:20 Pulse 86 07/04/23 11:20 Resp 18 07/04/23 15:23 BP 144/83 07/04/23 11:20 Pulse Ox 97 07/04/23 11:20 O2 Del Method Room Air 07/04/23 11:20 O2 Flow Rate 8 07/02/23 16:00 07/04/23 07/04/23 07/04/23 06:59 14:59 22:59 Intake Total 2009 1782.50 / 1782.50 50 / 1832.50 Output Total 1999 Balance 3759 1782.50 / 1782.50 50 / 1832.50 Physical Exam Narrative: General: Patient is awake and alert. Lying in bed. Very pleasant. Head: Normocephalic. Atraumatic. EOM intact. Neck: No JVD. Cardiovascular: RRR. No gallops. No murmurs. Lungs: Clear to auscultation, no use of accessory muscles, no crackles or wheezes. Skin: No jaundice. Abdomen: Normal bowel sounds, abdomen soft and nontender. Extremities: No cyanosis or clubbing. Musculoskeletal: Right foot is wrapped in bandage. Right proximal forearm with area of erythema and swelling. Neurological: Moves all 4 extremities. No myoclonus. Data 07/03/23 05:00 07/03/23 05:00 Micro: Microbiology 07/02/23 12:35 Gram Stain - Final Other Source Wound Culture - Preliminary Coag positive Staphylococcus 07/02/23 15:43 Gram Stain - Final Foot - #1 Tissue Culture - Preliminary Coag positive Staphylococcus 07/02/23 10:27 Blood Culture - Preliminary Blood NEGATIVE TO DATE A&P Assessment and plan (1) Diabetic foot infection: Status post surgical intervention per by podiatry Cultures reviewed Podiatry following, appreciate recommendation, d/w podiatry this morning Continue broad-spectrum antibiotics with vancomycin and Unasyn for now MRI reviewed Fall precautions Request ID consult to help guide abx therapy (2) Abscess of antecubital fossa: Antibiotics as above (3) Elevated blood pressure reading without diagnosis of hypertension: Without history hypertension, BP still elevated Monitor blood pressure closely (4) Type 1 diabetes mellitus: Type 1 diabetes melitis, uncontrolled with hyperglycemia with A1c of 9.6 Associated with diabetic neuropathy, gastroparesis Continue Lantus, decreased dose yesterday, but glycemic control remains very labile Sliding-scale insulin correction (5) Psoriatic arthritis: Leflonimide on hold (6) Immunocompromised state due to drug therapy: On Leflonimide prior to admission for psoriatic arthritis (7) Gastroparesis: Continue Reglan (8) Hypothyroidism: Continue Synthroid (9) Smoking: Would benefit from cessation Continue with nicotine patch Smoking cessation counseling discussed for 5 minutes Plan DVT prophylaxis: SCD CODE STATUS: Full code Attestations Medical Necessity Statement*: Patient requires ongoing hospitalization for IV abx, ID consult, and supportive care. Coding Level of Care Code Acute Code for [facility] Diagnoses Diabetic foot infection E11.628; L08.9 Abscess of antecubital fossa L02.419 Elevated blood pressure reading without diagnosis of hypertension R03.0 Type 1 diabetes mellitus E10.9 Psoriatic arthritis L40.50 Immunocompromised state due to drug therapy D84.821; Z79.899 Gastroparesis K31.84 Hypothyroidism E03.9 Smoking F17.200
[2023-07-04 17:00] LABS: Glucose Point of Care 200 mg/dL (70-110)
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
[2023-07-04 19:49] LABS: Glucose Point of Care 105 mg/dL (70-110)
[2023-07-04] MEDS: sennosides 8.6 mg Tablet 17.2 MG PO (20:13)
[2023-07-04 20:42] LABS: Glucose Point of Care 56 mg/dL (70-110)
[2023-07-04] MEDS: ALPRAZolam 0.5 mg Tablet PO (23:42)
[2023-07-05] VITALS (13 sets, daily range): BP systolic 152–196; BP diastolic 91–111; PULSE 69–83; RESP 14–18; TEMP 36.4–36.9; O2SAT 95–100
[2023-07-05] MEDS: metoprolol tartrate 1 mg/1 mL SDV 5 mL 5 MG IVP ×2 (00:56→11:19)
[2023-07-05] MEDS: ampicillin-sulbactam 3 GM in sodium chloride 0.9% (plus) 50 ML IV ×4 (01:33→20:05)
[2023-07-05 01:35] LABS: Glucose Point of Care 166 mg/dL (70-110)
--- NOTE | 2023-07-05 02:24 | PC.NURSE ---
dressing changed with assistance of river rafting guide. Small about of serosanguineous drainage noted from medial wound. No odor. Maxorb applied to three raw open areas and covered with 4x4 and wrapped with kerlix. Secured with fercho wrap. Pt tolerated well.
[2023-07-05] MEDS: oxyCODONE 5 mg IR Tab/Cap 10 MG PO ×4 (03:20→22:24)
[2023-07-05 04:07] LABS: Glucose Point of Care 177 mg/dL (70-110)
[2023-07-05] MEDS: morphine 4 mg/mL SDV 1 mL IVP ×3 (04:18→20:13)
[2023-07-05 04:40] LABS: Vancomycin Trough 12.8 ug/mL (10-15)
[2023-07-05] MEDS: vancomycin 1,250 MG/250 ML PIGGYBACK 200 MG IV ×2 (04:45→22:23)
[2023-07-05] MEDS: levothyroxine 150 mcg Tablet PO (05:00)
--- NOTE | 2023-07-05 06:11 | P.PN_ITS ---
Subjective Subjective: Patient seen bedside this morning. Denies any pain at the right foot. No acute in vents overnight. PICC line was placed. Has seen infectious disease. Vitals/I&O/Wt Last Vital Signs Temp 98.5 F 07/05/23 04:01 Pulse 74 07/05/23 04:01 Resp 16 07/05/23 04:18 BP 159/96 07/05/23 04:01 Pulse Ox 98 07/05/23 04:01 O2 Del Method Room Air 07/04/23 19:00 O2 Flow Rate 8 07/02/23 16:00 07/04/23 07/04/23 07/05/23 14:59 22:59 06:59 Intake Total 1782.50 / 1782.50 1821.25 / 3603.75 530 / 4133.75 Balance 1782.50 / 1782.50 1821.25 / 3603.75 530 / 4133.75 Physical Exam Narrative: GENERAL: Patient is alert and oriented ?3 and in no acute distress. The [facility] is a focused bilateral lower extremity exam. VASCULAR: Dorsalis pedis palpable +2 left and right foot. Posterior tibial arteries +2. Capillary refill time less than 3 seconds to the distal hallux bilaterally. Calf is supple and nontender proximally and distally. Mild decrease in pedal hair growth. Focal edema to the right foot at the level of the instep. NEUROLOGICAL: Protective sensation diminished bilateral foot. DERMATOLOGICAL: Cluster of wounds down to myofascial layer at the starting at the instep of the right foot coursing laterally across the right midfoot. Macerated margins, largely fibrotic base, erythema nearly resolved, no proximal lymphangitic streaking. Hyperkeratosis at the distal tuft of the right great toe. Grade 2 wound at the distal tuft of the right fourth toe without drainage. No soft tissue crepitus on palpation. Cicatrix to the right great toe and dorsal aspect of the right forefoot from previous surgeries. MUSCULOSKELETAL: Pes planus foot type. No soft tissue crepitus on palpation to the right foot. Hallux malleus to the right that is nonreducible. Hammertoe contractures of digits 2, 3, 4, 5 right foot, right fourth toe is most severe with triplane component. Data 07/05/23 06:59 07/05/23 03:33 Micro: Microbiology 08/15/23 12:35 Gram Stain - Final Other Source Wound Culture - Final Methicillin Resis Staph Aureus A&P Assessment and plan (1) Type 1 diabetes mellitus: (2) Smoking: (3) Immunocompromised state due to drug therapy: (4) Diabetic foot infection: (5) Cellulitis of right foot: (6) Chronic osteomyelitis of right foot: Plan 43-year-old patient with wound probes to myofascial layer at the instep of the right foot with surrounding erythema and purulent drainage. A1c 9.6. 3 days status post incision and debridement right foot down to myofascial layer. Date of operation 07/02/2023. Deep tissue cultures taken intraoperatively. Grew MRSA. Appreciate infectious disease recommendations. PICC line is placed. Planning on long-term antibiotics. MRI shows chronic osteomyelitis at the right great toe as well as at the right third metatarsal head involving the third metatarsophalangeal joint. Cam boot right lower extremity. Twice daily dressing changes silver alginate, sterile 4 x 4 gauze, Kerlix and Wesley wrap Patient okay for discharge from podiatry standpoint. Clinical improvement of erythema, wounds showing more granular base. Recommend follow-up in wound care clinic after discharge. Plan on following up with Dr. Bolanos for regular scheduled diabetic foot care once she is healed/discharged from wound care clinic. Working on home health for dressing supplies and IV antibiotics Podiatry will follow Attestations Medical Necessity Statement*: Right diabetic foot infection Coding Level of Care Code Acute Code for [facility] Diagnoses Type 1 diabetes mellitus E10.9 Smoking F17.200 Immunocompromised state due to drug therapy D84.821; Z79.899 Diabetic foot infection E11.628; L08.9 Cellulitis of right foot L03.115 Chronic osteomyelitis of right foot M86.671
[2023-07-05 06:42] LABS: Glucose Point of Care 234 mg/dL (70-110)
[2023-07-05 07:02] LABS: Alanine Aminotransferase 13 U/L (0-33); Albumin Level 3.2 g/dL (3.5-5.2); Alkaline Phosphatase 80 U/L (35-105); Aspartate Amino Transferase 21 U/L (0-32); Blood Urea Nitrogen 14 mg/dL (6-20); C Reactive Protein 4.4 mg/L (0.0-4.9); Carbon Dioxide 27 mmol/L (22-29); Chloride 97 mmol/L (98-107); Globulin 3.1 g/dL (1.3-4.6); Glomerular Filtration Rate 54.2 mL/min (90-130); Glucose 166 mg/dL (65-115); Osmolality Calculated 282 mOsm/kg (285-295); Sodium 134 mmol/L (136-145); Total Bilirubin 0.2 mg/dL (0.15-1.2); Total Protein 6.3 g/dL (6.6-8.7)
[2023-07-05 07:20] LABS: Basophils # 0.1 10^3/uL (0.0-0.1); Basophils % 1.2 %; Eosinophils # 0.3 10^3/uL (0.0-0.8); Eosinophils % 3.7 %; Hematocrit 35.9 % (37.0-47.0); Hemoglobin 11.4 g/dL (11.5-15.3); Lymphocytes # 2.4 10^3/uL (0.8-4.8); Lymphocytes % 34.1 %; Mean Corpuscular HGB Conc 31.8 g/dL (30.0-36.0); Mean Corpuscular Hemoglobin 28.4 pg (28.0-34.0); Mean Corpuscular Volume 89.5 fl (81-99); Mean Platelet Volume 10.8 fL (7.4-10.4); Monocytes # 0.7 10^3/uL (0.2-0.9); Monocytes % 9.4 %; Neutrophils # 3.56 10^3/uL (1.8-7.7); Neutrophils % 51.2 %; Nucleated Red Blood Cells % 0 %; Platelet Count 263 10^3/cmm (130-400); Red Blood Count 4.01 10^6/uL (4.1-5.3)
[2023-07-05 07:32] LABS: Erythrocyte Sedimentation Rate 37 mm/hr (0-15)
[2023-07-05 07:55] LABS: Glucose Point of Care 214 mg/dL (70-110)
[2023-07-05] MEDS: docusate sodium 100 mg Capsule PO (09:26)
[2023-07-05] MEDS: metoclopramide 10 mg Tablet PO ×3 (09:26→20:07)
[2023-07-05] MEDS: insulin glargine 100 units/1 mL 18 UNIT SUBCUT (09:26)
[2023-07-05] MEDS: gabapentin 300 mg Capsule 600 MG PO ×3 (09:27→20:08)
[2023-07-05] MEDS: insulin lispro 100 unit/1 mL SUBCUT ×2 (09:31→11:12)
[2023-07-05] MEDS: sodium chloride 0.9% 1,000 ML 75 ML IV ×2 (11:07→23:59)
[2023-07-05 11:16] LABS: Glucose Point of Care 219 mg/dL (70-110)
--- NOTE | 2023-07-05 13:07 | XR_ITS ---
WS: [id number] Portable AP upright chest, PICC line placement, 07/05/2023 Clinical Data: post picc insertion Comparison: Portable chest, 09/04/2019. Findings: The right PICC line ends in the superior vena cava. No pneumothorax is seen. There is left pleural reaction unchanged. Impression: Satisfactory placement of right PICC line.
--- NOTE | 2023-07-05 13:30 | PC.NURSE ---
Single lumen PICC placed to right basilic vein. Referred for PICC due to need for intermission coordinator IV antibiotics. Informed consent obtained from patient and risks and benefits discussed. Right arm basilic vein assessed, noted to be 4 mm in diameter, straight, and apparent best choice for placement. Using sterile technique and MST, basilic vein accessed x 1 stick. Mid-arm circumference measured 27 cm from right AC. Trimmed cath 43 cm with 0 cm external length noted. CXR shows tip in SVC, in good position for use per radiologist. Line secured with stat-lock. Insertion site covered with Biopatch and TSM. Report given to bedside nurseEmmett.
--- NOTE | 2023-07-05 15:06 | P.PN_ITS ---
Subjective Subjective: Patient reports she is feeling better. Denies significant pain in her foot. Denies fevers, chills, nausea or emesis. Blood pressure found to be more elevated today. Medications: Reviewed: Yes Vitals/I&O/Wt Last Vital Signs Temp 97.8 F 07/05/23 11:16 Pulse 78 07/05/23 11:16 Resp 18 07/05/23 11:19 BP 196/111 07/05/23 11:16 Pulse Ox 100 07/05/23 11:16 O2 Del Method Room Air 07/05/23 11:16 O2 Flow Rate 8 07/05/23 08:00 07/05/23 07/05/23 07/05/23 06:59 14:59 22:59 Intake Total 780 / 4383.75 1480 / 1480 Balance 780 / 4383.75 1480 / 1480 Physical Exam Narrative: General: Patient is awake and alert. Lying in bed. Very pleasant. Head: Normocephalic. Atraumatic. Neck: No JVD. Cardiovascular: RRR. No gallops. No murmurs. Lungs: Clear to auscultation, no use of accessory muscles, no crackles or wheezes. Skin: No jaundice. Abdomen: Normal bowel sounds, abdomen soft and nontender. Extremities: No cyanosis or clubbing. Musculoskeletal: Right foot is wrapped in bandage. Right proximal forearm is healing. Neurological: Moves all 4 extremities. No myoclonus. Data 07/05/23 06:59 07/05/23 03:33 Micro: Microbiology 07/02/23 15:43 Gram Stain - Final Foot - #1 Tissue Culture - Preliminary Coag positive Staphylococcus 07/02/23 12:35 Gram Stain - Final Other Source Wound Culture - Final Methicillin Resis Staph Aureus A&P Assessment and plan (1) Diabetic foot infection: Podiatry following, appreciate recommendation, d/w podiatry this morning ID evaluated, appreciate recommendations Continue vancomycin, anticipate 6 weeks of treatment per infectious disease recommendations Case management working on outpatient services PICC line requested (2) Abscess of antecubital fossa: Antibiotics as above (3) Elevated blood pressure reading without diagnosis of hypertension: Without history hypertension, BP still elevated Monitor blood pressure closely Continue as needed antihypertensives Patient will either need to go home on antihypertensive or continue home blood pressure log, will continue further discussions (4) Type 1 diabetes mellitus: Type 1 diabetes melitis, uncontrolled with hyperglycemia with A1c of 9.6 Associated with diabetic neuropathy, gastroparesis Continue Lantus Sliding-scale insulin correction, okay for patient to help guide her own insulin therapy (5) Psoriatic arthritis: Leflonimide on hold (6) Immunocompromised state due to drug therapy: On Leflonimide prior to admission for psoriatic arthritis (7) Gastroparesis: Continue Reglan (8) Hypothyroidism: Continue Synthroid (9) Smoking: Would benefit from cessation Continue with nicotine patch Plan DVT prophylaxis: SCD CODE STATUS: Full code Attestations Medical Necessity Statement*: Patient requires ongoing hospitalization for IV antibiotics, arrangement of outpatient services, and supportive care. Coding Level of Care Code Acute Code for [facility] Fwd Diagnoses Diabetic foot infection E11.628; L08.9 Abscess of antecubital fossa L02.419 Elevated blood pressure reading without diagnosis of hypertension R03.0 Type 1 diabetes mellitus E10.9 Psoriatic arthritis L40.50 Immunocompromised state due to drug therapy D84.821; Z79.899 Gastroparesis K31.84 Hypothyroidism E03.9 Smoking F17.200
[2023-07-05 17:14] LABS: Glucose Point of Care 158 mg/dL (70-110)
[2023-07-05 20:43] LABS: Glucose Point of Care 221 mg/dL (70-110)
[2023-07-05] MEDS: ALPRAZolam 0.5 mg Tablet PO (23:53)
[2023-07-06] VITALS (14 sets, daily range): BP systolic 159–188; BP diastolic 61–114; PULSE 67–80; RESP 14–18; TEMP 36.2–36.8; O2SAT 93–98
[2023-07-06] MEDS: ampicillin-sulbactam 3 GM in sodium chloride 0.9% (plus) 50 ML IV ×4 (02:00→21:44)
[2023-07-06] MEDS: levothyroxine 150 mcg Tablet PO (05:06)
[2023-07-06 06:43] LABS: Glucose Point of Care 249 mg/dL (70-110)
[2023-07-06] MEDS: morphine 4 mg/mL SDV 1 mL IVP ×4 (07:59→23:13)
[2023-07-06] MEDS: metoprolol tartrate 1 mg/1 mL SDV 5 mL 5 MG IVP (08:00)
[2023-07-06] MEDS: insulin lispro 100 unit/1 mL SUBCUT ×2 (08:29→17:52)
[2023-07-06] MEDS: insulin glargine 100 units/1 mL 18 UNIT SUBCUT (08:31)
[2023-07-06] MEDS: metoclopramide 10 mg Tablet PO ×3 (08:31→21:41)
[2023-07-06] MEDS: gabapentin 300 mg Capsule 600 MG PO ×3 (08:31→21:40)
[2023-07-06] MEDS: docusate sodium 100 mg Capsule PO (08:31)
[2023-07-06] MEDS: oxyCODONE 5 mg IR Tab/Cap 10 MG PO ×3 (09:16→21:41)
[2023-07-06] MEDS: amlodipine 5 mg Tablet PO (09:53)
[2023-07-06 10:49] LABS: Glucose Point of Care 146 mg/dL (70-110)
[2023-07-06] MEDS: sodium chloride 0.9% 1,000 ML 75 ML IV (13:40)
--- NOTE | 2023-07-06 15:13 | PM.PN ---
Subjective Subjective: Blood pressure still elevated this morning, will proceed to start Norvasc. Patient reports the pain overall is well controlled. He denies fevers, chills, nausea or emesis. We discussed discharge planning and hopefully if everything goes as intended will be able to discharge tomorrow. Medications: Reviewed: Yes Vitals/I&O/Wt Last Vital Signs Temp 97.9 F 07/06/23 11:42 Pulse 67 07/06/23 11:42 Resp 18 07/06/23 13:54 BP 169/112 07/06/23 11:42 Pulse Ox 98 07/06/23 11:42 O2 Del Method Room Air 07/06/23 00:00 O2 Flow Rate 8 07/05/23 08:00 07/06/23 07/06/23 07/06/23 06:59 14:59 22:59 Intake Total 1505 / 3425 2360 / 2360 Balance 1505 / 3425 2360 / 2360 Physical Exam Narrative: General: Patient is awake and alert. Lying in bed. Very pleasant. Head: Normocephalic. Atraumatic. Neck: No JVD. Cardiovascular: RRR. No gallops. No murmurs. PICC line is present. Lungs: Clear to auscultation, no use of accessory muscles, no crackles or wheezes. Skin: No jaundice. Abdomen: Normal bowel sounds, abdomen soft and nontender. Extremities: No cyanosis or clubbing. Musculoskeletal: Right foot is wrapped in bandage. Right proximal forearm is healing. Neurological: Moves all 4 extremities. No myoclonus. Data 07/05/23 06:59 07/05/23 03:33 Micro: Microbiology 07/02/23 15:43 Gram Stain - Final Foot - #1 Tissue Culture - Final Methicillin Resis Staph Aureus A&P Assessment and plan (1) Diabetic foot infection: Podiatry following, appreciate recommendation ID evaluated, appreciate recommendations Continue vancomycin, anticipate 6 weeks of treatment per infectious disease recommendations PICC line placed Outpatient services being arranged Anticipate discharge in 24 to 48 hours (2) Abscess of antecubital fossa: Antibiotics as above (3) Elevated blood pressure reading without diagnosis of hypertension: Blood pressure persistently elevated Starting Norvasc this morning She will need to keep a home blood pressure log for titration (4) Type 1 diabetes mellitus: Type 1 diabetes melitis, uncontrolled with hyperglycemia with A1c of 9.6 Associated with diabetic neuropathy, gastroparesis Continue Lantus Sliding-scale insulin correction, okay for patient to help guide her own insulin therapy (5) Psoriatic arthritis: Leflonimide on hold (6) Immunocompromised state due to drug therapy: On Leflonimide prior to admission for psoriatic arthritis (7) Gastroparesis: Continue Reglan (8) Hypothyroidism: Continue Synthroid (9) Smoking: Would benefit from cessation Continue with nicotine patch Plan DVT prophylaxis: SCD CODE STATUS: Full code Attestations Medical Necessity Statement*: Patient requires ongoing hospitalization for IV antibiotics and supportive care. Coding Level of Care Code Acute Code for g Fwd Diagnoses Diabetic foot infection E11.628; L08.9 Abscess of antecubital fossa L02.419 Elevated blood pressure reading without diagnosis of hypertension R03.0 Type 1 diabetes mellitus E10.9 Psoriatic arthritis L40.50 Immunocompromised state due to drug therapy D84.821; Z79.899 Gastroparesis K31.84 Hypothyroidism E03.9 Smoking F17.200
[2023-07-06] MEDS: vancomycin 1,250 MG/250 ML PIGGYBACK 200 MG IV (15:23)
[2023-07-06 17:06] LABS: Glucose Point of Care 257 mg/dL (70-110)
[2023-07-06] MEDS: ondansetron 2 mg/ML SDV 2 mL 4 MG IVP (18:27)
[2023-07-06 20:05] LABS: Glucose Point of Care 53 mg/dL (70-110)
[2023-07-06 21:25] LABS: Glucose Point of Care 197 mg/dL (70-110)
[2023-07-06] MEDS: sennosides 8.6 mg Tablet 17.2 MG PO (21:41)
[2023-07-07] VITALS (9 sets, daily range): BP systolic 164–176; BP diastolic 95–108; PULSE 60–121; RESP 16–20; TEMP 36.6–36.7; O2SAT 90–98
[2023-07-07] MEDS: ampicillin-sulbactam 3 GM in sodium chloride 0.9% (plus) 50 ML IV ×2 (03:02→07:31)
[2023-07-07] MEDS: sodium chloride 0.9% 1,000 ML 75 ML IV (03:02)
[2023-07-07] MEDS: morphine 4 mg/mL SDV 1 mL IVP ×3 (03:22→11:08)
[2023-07-07] MEDS: oxyCODONE 5 mg IR Tab/Cap 10 MG PO ×2 (05:30→13:06)
[2023-07-07] MEDS: levothyroxine 150 mcg Tablet PO (05:31)
[2023-07-07 06:42] LABS: Glucose Point of Care 328 mg/dL (70-110)
[2023-07-07 07:14] LABS: Glucose Point of Care 313 mg/dL (70-110)
[2023-07-07] MEDS: insulin lispro 100 unit/1 mL SUBCUT (07:24)
[2023-07-07] MEDS: insulin glargine 100 units/1 mL 18 UNIT SUBCUT (07:30)
[2023-07-07] MEDS: bisacodyl 5 mg Tablet 10 MG PO (08:26)
[2023-07-07] MEDS: amlodipine 5 mg Tablet PO (08:26)
[2023-07-07] MEDS: gabapentin 300 mg Capsule 600 MG PO (08:28)
[2023-07-07] MEDS: metoclopramide 10 mg Tablet PO (08:28)
--- NOTE | 2023-07-07 09:38 | P.PN_ITS ---
Subjective Subjective: Patient is seen bedside this morning. Denies any acute events overnight. Denies any pain to the right foot. She is anticipating discharge home today. Vitals/I&O/Wt Last Vital Signs Temp 98.0 F 07/07/23 07:38 Pulse 60 07/07/23 07:38 Resp 16 07/07/23 07:38 BP 176/108 07/07/23 07:38 Pulse Ox 90 07/07/23 07:38 O2 Del Method Room Air 07/06/23 00:00 O2 Flow Rate 8 07/05/23 08:00 07/06/23 07/07/23 07/07/23 22:59 06:59 14:59 Intake Total 900 / 3500 1050 / 4550 170 / 170 Balance 900 / 3500 1050 / 4550 170 / 170 Physical Exam Narrative: GENERAL: Patient is alert and oriented ?3 and in no acute distress. The following is a focused bilateral lower extremity exam. VASCULAR: Dorsalis pedis palpable +2 left and right foot. Posterior tibial padmaja mary jo +2. Capillary refill time less than 3 seconds to the distal hallux bilaterally. Calf is supple and nontender proximally and distally. Mild decrease in pedal hair growth. Focal edema to the right foot at the level of the instep. NEUROLOGICAL: Protective sensation diminished bilateral foot. DERMATOLOGICAL: Cluster of wounds at the right plantar instep , measuring as a whole 4 cm x 1 cm x 0.2 cm with 80% granular and 20% fibrotic base, no periwound erythema or purulent drainage. Does not probe to bone. No soft tissue crepitus on palpation. Cicatrix to the right great toe and dorsal aspect of the right forefoot from previous surgeries. MUSCULOSKELETAL: Pes planus foot type. No soft tissue crepitus on palpation to the right foot. Hallux malleus to the right that is nonreducible. Hammertoe contractures of digits 2, 3, 4, 5 right foot, right fourth toe is most severe with triplane component. Data 07/05/23 06:59 07/05/23 03:33 A&P Assessment and plan (1) Type 1 diabetes mellitus: (2) Smoking: (3) Immunocompromised state due to drug therapy: (4) Diabetic foot infection: (5) Cellulitis of right foot: (6) Chronic osteomyelitis of right foot: Plan 43-year-old patient with wound probes to myofascial layer at the instep of the right foot with surrounding erythema and purulent drainage. A1c 9.6. Status post incision and debridement right foot down to myofascial layer. Date of operation 07/02/2023. Deep tissue cultures taken intraoperatively. Grew MRSA. Appreciate infectious disease recommendations. PICC line is placed. Planning on long-term antibiotics. MRI shows chronic osteomyelitis at the right great toe as well as at the right third metatarsal head involving the third metatarsophalangeal joint. Cam boot right lower extremity. Twice daily dressing changes silver alginate, sterile 4 x 4 gauze, Kerlix and Wesley wrap Patient okay for discharge from podiatry standpoint. Clinical improvement of erythema, wounds showing more granular base. Recommend follow-up in wound care clinic after discharge. Plan on following up with Dr. Bolanos for regular scheduled diabetic foot care once she is healed/discharged from wound care clinic. Working on home health for dressing supplies and IV antibiotics Podiatry will follow Attestations Medical Necessity Statement*: Right diabetic foot infection Coding Level of Care Code Acute Code for [facility] Fwd Diagnoses Type 1 diabetes mellitus E10.9 Smoking F17.200 Immunocompromised state due to drug therapy D84.821; Z79.899 Diabetic foot infection E11.628; L08.9 Cellulitis of right foot L03.115 Chronic osteomyelitis of right foot M86.671
[2023-07-07] MEDS: vancomycin 1,250 MG/250 ML PIGGYBACK 200 MG IV (09:59)
[2023-07-07 11:32] LABS: Glucose Point of Care 88 mg/dL (70-110)
--- NOTE | 2023-07-07 12:56 | P.DS_ITS ---
Discharge Providers Date of Admission: 07/02/23 13:55 Date of Discharge: July 07, 2023 Attending Provider at Admission: Mary Beth Arana MD Attending Provider at Discharge: Sherman Mccarty MD Consults: Podiatry Infectious disease Primary Care Provider: Latha Tsang DO Diagnoses at Discharge Discharge Diagnosis (1) Type 1 diabetes mellitus: Status: Chronic (2) Smoking: Status: Chronic (3) Immunocompromised state due to drug therapy: Status: Acute Permanent problem details: leflunomide (4) Diabetic foot infection: Status: Acute (5) Cellulitis of right foot: Status: Acute (6) Chronic osteomyelitis of right foot: Status: Acute Reason for Visit Reason for Visit: RT foot inj (pus) Hospital Course Hospital Course Alexa Chang is a 43-year-old female with a past medical history significant for type 1 diabetes mellitus, diabetic foot infection, osteomyelitis, gastroparesis, hypothyroidism, psoriatic arthritis and tobacco use disorder who presented with right foot pain, found to have MRSA diabetic foot infection of right foot complicated by chronic osteomyelitis and cellulitis. Podiatry was consulted. Patient underwent incision and debridement down to the myofascial layer of the right foot. Wound culture revealed MRSA. Patient was treated with broad-spectrum antibiotics initially. Infectious disease was consulted. Recommendation was for 6 weeks of IV vancomycin. PICC line was placed. Home health was established. Patient discharged home in stable condition. She is to follow-up as outpatient for continued care. During her hospitalization, blood pressure was found to be persistently elevated. She was eventually started on Norvasc with some improvement. She was counseled to keep a home blood pressure log and follow-up with her primary care provider for further titration of antihypertensive medications. Physical Exam Narrative: General: Patient is awake and alert.? No acute distress. Very pleasant. Lying in bed. Head:? Normocephalic. Atraumatic. Neck: No JVD. Cardiovascular: RRR. No gallops. No murmurs.? PICC line is present. Lungs: Clear to auscultation, no use of accessory muscles, no crackles or wheezes. Skin: No jaundice. Abdomen: Normal bowel sounds, abdomen soft and nontender. Extremities: No cyanosis or clubbing. Musculoskeletal: Right foot is wrapped in bandage.? Right proximal forearm is healing. Neurological: Moves all 4 extremities. No myoclonus. Discharge Data Studies Completed and Pending Completed Studies During Hospitalization Category Date Time Status CXRP [XR chest 1V portable [id number]] Routine Exams 07/05/23 13:07 Completed XR ankle RT min 3V* [id number] Stat Exams 07/02/23 09:31 Completed XR foot RT min 3V* [id number] Stat Exams 07/02/23 09:31 Completed MR foot RT wo/w con [id number] Routine MRI 07/03/23 06:00 Completed US soft tissue/extremity [id number] Stat Ultrasound 07/02/23 11:18 Completed Radiology Impressions Ankle X-Ray 07/02/23 09:31 IMPRESSION: No acute findings. Foot X-Ray 07/02/23 09:31 IMPRESSION: 1. No acute osseous findings. 2. Chronic abnormal changes as above. Laboratory Results WBC 7.0 10^3/uL (4.0-10.0) 07/05/23 06:59 RBC 4.01 10^6/uL (4.1-5.3) L 07/05/23 06:59 Hgb 11.4 g/dL (11.5-15.3) L 07/05/23 06:59 Hct 35.9 % (37.0-47.0) L 07/05/23 06:59 MCV 89.5 fl (81-99) 07/05/23 06:59 MCH 28.4 pg (28.0-34.0) 07/05/23 06:59 MCHC 31.8 g/dL (30.0-36.0) 07/05/23 06:59 RDW 14.0 % (12.1-15.1) 07/05/23 06:59 Plt Count 263 10^3/cmm (130-400) 07/05/23 06:59 MPV 10.8 fL (7.4-10.4) H 07/05/23 06:59 Neut % (Auto) 51.2 % 07/05/23 06:59 Lymph % (Auto) 34.1 % 07/05/23 06:59 Sunflower % (Auto) 9.4 % 07/05/23 06:59 Eos % (Auto) 3.7 % 07/05/23 06:59 Baso % (Auto) 1.2 % 07/05/23 06:59 Neut # (Auto) 3.56 10^3/uL (1.8-7.7) 07/05/23 06:59 Lymph # (Auto) 2.4 10^3/uL (0.8-4.8) 07/05/23 06:59 Sunflower # (Auto) 0.7 10^3/uL (0.2-0.9) 07/05/23 06:59 Eos # (Auto) 0.3 10^3/uL (0.0-0.8) 07/05/23 06:59 Baso # (Auto) 0.1 10^3/uL (0.0-0.1) 07/05/23 06:59 Nucleated RBC % (auto) 0 % 07/05/23 06:59 Nucleated RBCs # 0.0 /100WBC 07/05/23 06:59 ESR 37 mm/hr (0-15) H 07/05/23 06:59 Sodium 134 mmol/L (136-145) L 07/05/23 03:33 Potassium 5.0 mmol/L (3.5-5.1) 07/05/23 03:33 Chloride 97 mmol/L (98-107) L 07/05/23 03:33 Carbon Dioxide 27 mmol/L (22-29) 07/05/23 03:33 Anion Gap 15.0 (5-19) 07/05/23 03:33 BUN 14 mg/dL (6-20) 07/05/23 03:33 Creatinine 1.1 mg/dL (0.5-0.9) H 07/05/23 03:33 GFR Calculation 54.2 mL/min (90-130) L 07/05/23 03:33 Glucose 166 mg/dL (65-115) H 07/05/23 03:33 POC Glucose 88 mg/dL (70-110) 07/07/23 10:54 Estimat Average Glucose 229 07/02/23 09:55 Hemoglobin A1c 9.6 % (4.0-6.0) H 07/02/23 09:55 Calculated Osmolality 282 mOsm/kg (285-295) L 07/05/23 03:33 Lactic Acid 1.2 mmol/L (0.5-2.2) 07/02/23 09:55 Calcium 9.0 mg/dL (8.5-10.5) 07/05/23 03:33 Phosphorus 4.2 mg/dL (2.5-4.5) 07/03/23 05:00 Magnesium 1.8 mg/dL (1.7-2.3) 07/03/23 05:00 Total Bilirubin 0.2 mg/dL (0.15-1.2) 07/05/23 03:33 AST 21 U/L (0-32) 07/05/23 03:33 ALT 13 U/L (0-33) 07/05/23 03:33 Alkaline Phosphatase 80 U/L (35-105) 07/05/23 03:33 C-Reactive Protein 4.4 mg/L (0.0-4.9) 07/05/23 03:33 Total Protein 6.3 g/dL (6.6-8.7) L 07/05/23 03:33 Albumin 3.2 g/dL (3.5-5.2) L 07/05/23 03:33 Globulin 3.1 g/dL (1.3-4.6) 07/05/23 03:33 Urine Color Yellow (Yellow) 07/02/23 09:30 Urine Appearance Sl hazy (CLEAR) A 07/02/23 09:30 Urine pH 7 (5-7) 07/02/23 09:30 Ur Specific [place] 1.005 (1.005-1.030) 07/02/23 09:30 Urine Protein Trace (Negative) 07/02/23 09:30 Urine Glucose (UA) 2+ (Normal) H 07/02/23 09:30 Urine Ketones Negative (Negative) 07/02/23 09:30 Urine Blood Trace (Negative) H 07/02/23 09:30 Urine Nitrate Negative (Negative) 07/02/23 09:30 Urine Bilirubin Neg (Negative) 07/02/23 09:30 Urine Urobilinogen Norm mg/dL (Negative) 07/02/23 09:30 Ur Leukocyte Esterase Negative (Negative) 07/02/23 09:30 Urine RBC 0-4 /hpf (0-2) H 07/02/23 09:30 Urine WBC 0-4 /hpf (0-5) H 07/02/23 09:30 Ur Squamous Epith Cells 5-10 /hpf (0-5) H 07/02/23 09:30 Amorphous Sediment Not Reportable 07/02/23 09:30 Urine Bacteria Trace /hpf (NONE) 07/02/23 09:30 Urine Mucus Trace /hpf 07/02/23 09:30 Urine HCG, Qual Negative (Negative) 07/02/23 15:05 Vancomycin Trough 12.8 ug/mL (10-15) 07/05/23 03:33 Urine Opiates Screen Negative ng/mL (Negative) 07/02/23 09:30 Ur Barbiturates Screen Negative ng/mL (Negative) 07/02/23 09:30 Ur Phencyclidine Scrn Negative ng/mL (Negative) 07/02/23 09:30 Ur Amphetamines Screen Negative ng/mL (Negative) 07/02/23 09:30 U Benzodiazepines Scrn Negative ng/mL (Negative) 07/02/23 09:30 Urine Cocaine Screen Negative ng/mL (Negative) 07/02/23 09:30 U Marijuana (THC) Screen Positive ng/mL (Negative) H 07/02/23 09:30 Procedures Performed Incision and debridement down to myofascial layer right foot Vitals Last Vital Signs Temp 98.0 F 07/07/23 11:36 Pulse 78 07/07/23 11:36 Resp 16 07/07/23 11:36 BP 164/100 07/07/23 11:36 Pulse Ox 98 07/07/23 11:36 O2 Del Method Room Air 07/06/23 00:00 O2 Flow Rate 8 07/05/23 08:00 Discharge Plan Discharge Patient Disposition: Home Health Service Condition: Stable Prescriptions: New amlodipine 5 mg Tablet 5 mg PO DAILY 30 Days Qty: 30 5RF oxycodone 5 mg Tablet 10 mg PO Q4H PRN (Reason: pain) 7 Days Qty: 30 0RF Rx Instructions: Do not exceed 5 tabs in 24 hours Continued Lantus Solostar U-100 Insulin 100 unit/mL (3 mL) insulin pen 30 unit SUBCUT DAILY Rx Instructions: every morning (DME) InPen (for Novolog or Fiasp) Insulin Pen See Rx Instructions .ROUTE .MEDSUPPLY Qty: 1 Rx Instructions: As directed gabapentin 600 mg tablet 600 mg PO TID Novolog FlexPen U-100 Insulin 100 unit/mL (3 mL) insulin pen See Rx Instructions .ROUTE .COMPLEX Rx Instructions: PER SLIDING SCALE THREE TIMES DAILY NEEDED. MAX 45 UNITS DAILY leflunomide 20 mg tablet 20 mg PO DAILY metoclopramide HCl 10 mg tablet 10 mg PO TID Rx Instructions: BEFORE MEALS ibuprofen 200 mg Tablet 800 mg PO Q6H PRN (Reason: Pain) levothyroxine 125 mcg tablet 150 mcg PO .COKEMAN Discharge Orders: Discharge Order (Routine); Ordered 07/07/23 Ordered By: Sherman Mccarty Referrals: [facility] [place] [facility] ([facility]) [Outside] Maverick Bolanos DPM [Physician] - 4-7 days (Message sent to clinic.) Aimee Acosta MD [Hospitalist] - 6 Weeks (Message sent to clinic) Latha Tsang DO [Primary Care Provider] - 4-7 days (Please call Saturday to schedule an appointment with Dr. Tsang.) Wound Care [Provider Group] - 4-7 days (Right foot wound, podiatry request) Discharge Diet: Advance as tolerated, Usual diet, Diabetic and Low Salt Discharge Activity: Resume usual activity and Increase activity as tolerated Patient Instructions: Diabetic Neuropathy, Oxycodone, Rapid Release (By mouth), Amlodipine (By mouth) (Hypertenipine-2.5, Norvasc, Norliqva), Foot Care for Diabetics, Opioid Safety Activity Restrictions/Additional Instructions: Wound care orders for right foot. Please perform twice daily dressing change consisting of silver alginate as primary dressing followed by gauze, Kerlix and Wesley wrap. Cam boot to right lower extremity, may heel touch for transfers Discharge Attestations Time Spent in Discharge Care*: greater than 30 min Quality Metrics Clinical Quality Measures [ No reported AMI, CVA or VTE this stay] Coding Level of Care Code Acute Code for [facility] Fwd Diagnoses Type 1 diabetes mellitus E10.9 Smoking F17.200 Immunocompromised state due to drug therapy D84.821; Z79.899 Diabetic foot infection E11.628; L08.9 Cellulitis of right foot L03.115 Chronic osteomyelitis of right foot M86.671
--- NOTE | 2023-07-07 13:39 | PC.NURSE ---
Patient discharged to home with home health. Discharge instructions given. Pt verbalizes understanding. VSS. Alert and oriented with children at side. Home Vanco, dressing materials sent with patient. All personal belongings with patient. Patient escorted to private vehicle via wheelchair.
== END 2023-07-07 13:41 | disposition home health service (06) | DRG 623 ==
LOC: ER 12:08 → MEDSURG 13:55
PROVIDERS: Physician Assistant Surgical; Podiatrist Foot & Ankle Surgery; Admitting Provider Hospitalist; Emergency Provider Family Medicine; PCP Family Medicine; Visit Provider Internal Medicine
PROC: 0JBQ0ZZ Excision of Right Foot Subcutaneous Tissue and Fascia, Open Approach (ICD-10-PCS; principal; 2023-07-02 15:00)
DX: E10.621 Type 1 diabetes mellitus with foot ulcer (principal); D84.821 Immunodeficiency due to drugs; L97.418 Non-pressure chronic ulcer of right heel and midfoot with other specified severity; M86.671 Other chronic osteomyelitis, right ankle and foot; L03.115 Cellulitis of right lower limb; E10.69 Type 1 diabetes mellitus with other specified complication; E10.43 Type 1 diabetes mellitus with diabetic autonomic (poly)neuropathy; K31.84 Gastroparesis; E10.40 Type 1 diabetes mellitus with diabetic neuropathy, unspecified; B95.62 Methicillin resistant Staphylococcus aureus infection as the cause of diseases classified elsewhere; Z79.899 Other long term (current) drug therapy; E03.9 Hypothyroidism, unspecified; L40.50 Arthropathic psoriasis, unspecified; I10 Essential (primary) hypertension; Z90.01 Acquired absence of eye; Z97.0 Presence of artificial eye; F17.210 Nicotine dependence, cigarettes, uncomplicated; M20.41 Other hammer toe(s) (acquired), right foot
CPT/HCPCS: 36415; 36416; 36573; 71045; 73610; 73630; 73720; 76882; 80048; 80053; 80202; 80306; 81001; 81025; 82962; 83036; 83605; 83735; 84100; 84703; 85025; 85651; 86140; 87040; 87070; 87075; 87077; 87176; 87186; 87205; 93005; 96365; 96367; 96372; 96375; 97760; 99285; A9577; J0295; J1170; J1200; J1815; J2270; J2405; J2704; J3010; J3370; J3490; J7030; J7050; J8597; L4361

== ENCOUNTER 2023-07-08 06:02 | Outpatient (CLI) | payer MEDICAID, SELFPAY ==
[2023-07-08 15:46] LABS: Basophils # 0.1 10^3/uL (0.0-0.1); Basophils % 1.9 %; Eosinophils # 0.2 10^3/uL (0.0-0.8); Eosinophils % 2.3 %; Hematocrit 44.1 % (37.0-47.0); Hemoglobin 14.1 g/dL (11.5-15.3); Lymphocytes # 1.4 10^3/uL (0.8-4.8); Lymphocytes % 19.4 %; Mean Corpuscular Hemoglobin 27.5 pg (28.0-34.0); Mean Platelet Volume 11.4 fL (7.4-10.4); Monocytes # 0.7 10^3/uL (0.2-0.9); Monocytes % 9.4 %; Neutrophils # 4.83 10^3/uL (1.8-7.7); Neutrophils % 66.7 %; Nucleated Red Blood Cells % 0 %; Platelet Count 286 10^3/cmm (130-400); Red Blood Count 5.13 10^6/uL (4.1-5.3); Red Cell Distribution Width 13.9 % (12.1-15.1); White Blood Count 7.3 10^3/uL (4.0-10.0)
[2023-07-08 16:09] LABS: Vancomycin Trough 7.5 ug/mL (10-15)
[2023-07-08 16:10] LABS: Alanine Aminotransferase 14 U/L (0-33); Albumin Level 3.9 g/dL (3.5-5.2); Alkaline Phosphatase 86 U/L (35-105); Anion Gap 16.4 (5-19); Aspartate Amino Transferase 22 U/L (0-32); Blood Urea Nitrogen 21 mg/dL (6-20); Calcium 9.4 mg/dL (8.5-10.5); Carbon Dioxide 26 mmol/L (22-29); Chloride 93 mmol/L (98-107); Globulin 4.1 g/dL (1.3-4.6); Glomerular Filtration Rate 68.3 mL/min (90-130); Glucose 256 mg/dL (65-115); Osmolality Calculated 284 mOsm/kg (285-295); Potassium 4.4 mmol/L (3.5-5.1); Sodium 131 mmol/L (136-145); Total Bilirubin 0.3 mg/dL (0.15-1.2)
== END 2023-07-08 06:03 | disposition home or self-care (01) ==
PROVIDERS: PCP Family Medicine; Visit Provider Student in an Organized Health Care Education/Training Program
DX: Z01.89 Encounter for other specified special examinations (principal)
CPT/HCPCS: 80053; 80202; 85025; 86140

== ENCOUNTER → 2023-07-11 09:03 | Outpatient (BNVA) | payer MEDICAID, SELFPAY | PROVIDERS: PCP Family Medicine; Visit Provider Nurse Practitioner Family | DX: E11.52 Type 2 diabetes mellitus with diabetic peripheral angiopathy with gangrene (principal); L97.412 Non-pressure chronic ulcer of right heel and midfoot with fat layer exposed | CPT/HCPCS: 97597; 99213 ==

== ENCOUNTER 2023-07-17 09:47 | Outpatient (CLI) | payer MEDICAID, SELFPAY ==
[2023-07-16 18:30] LABS: Alanine Aminotransferase 27 U/L (0-33); Alkaline Phosphatase 93 U/L (35-105); Anion Gap 13.6 (5-19); Aspartate Amino Transferase 33 U/L (0-32); Blood Urea Nitrogen 21 mg/dL (6-20); Calcium 9.1 mg/dL (8.5-10.5); Carbon Dioxide 28 mmol/L (22-29); Chloride 98 mmol/L (98-107); Globulin 3.7 g/dL (1.3-4.6); Glomerular Filtration Rate 44.7 mL/min (90-130); Glucose 90 mg/dL (65-115); Osmolality Calculated 283 mOsm/kg (285-295); Potassium 4.6 mmol/L (3.5-5.1); Sodium 135 mmol/L (136-145); Total Bilirubin 0.5 mg/dL (0.15-1.2); Total Protein 7.7 g/dL (6.6-8.7); Vancomycin Trough 7.9 ug/mL (10-15)
[2023-07-16 19:03] LABS: Basophils # 0.1 10^3/uL (0.0-0.1); Basophils % 1.3 %; Eosinophils # 0.2 10^3/uL (0.0-0.8); Eosinophils % 3.3 %; Hematocrit 42.9 % (36-47); Lymphocytes % 32.8 %; Mean Corpuscular HGB Conc 31.7 g/dL (30-55); Mean Corpuscular Hemoglobin 27.4 pg (27-33); Mean Corpuscular Volume 86.3 fl (85-98); Mean Platelet Volume 12.4 fL (7.4-10.4); Monocytes # 0.5 10^3/uL (0.2-0.9); Monocytes % 7.9 %; Neutrophils # 3.31 10^3/uL (1.8-7.7); Neutrophils % 54.4 %; Nucleated Red Blood Cells % 0 %; Platelet Count 253 10^3/cmm (157-399); Red Blood Count 4.97 10^6/uL (3.85-5.65); Red Cell Distribution Width 14.3 % (12.1-15.1); White Blood Count 6.09 10^3/uL (3.29-11.43)
== END 2023-07-17 09:48 | disposition home or self-care (01) ==
LOC: LAB 09:47
PROVIDERS: PCP Family Medicine; Visit Provider Student in an Organized Health Care Education/Training Program
DX: M86.671 Other chronic osteomyelitis, right ankle and foot (principal)
CPT/HCPCS: 80048; 80053; 80202; 84134; 85025; 86140

== ENCOUNTER → 2023-07-18 08:39 | Outpatient (BNVA) | payer MEDICAID, SELFPAY | PROVIDERS: PCP Family Medicine; Visit Provider Nurse Practitioner Family | DX: E11.52 Type 2 diabetes mellitus with diabetic peripheral angiopathy with gangrene (principal); L97.412 Non-pressure chronic ulcer of right heel and midfoot with fat layer exposed; L97.512 Non-pressure chronic ulcer of other part of right foot with fat layer exposed | CPT/HCPCS: 97597; A6210 ==

== ENCOUNTER 2023-07-24 09:00 | Outpatient (CLI) | payer MEDICAID, SELFPAY ==
[2023-07-24 17:35] LABS: Basophils # 0.1 10^3/uL (0.0-0.1); Basophils % 1.5 %; Eosinophils # 0.3 10^3/uL (0.0-0.8); Eosinophils % 6.3 %; Hematocrit 35.9 % (36-47); Lymphocytes # 1.5 10^3/uL (0.8-4.8); Lymphocytes % 28.4 %; Mean Corpuscular HGB Conc 32.3 g/dL (30-55); Mean Corpuscular Hemoglobin 27.4 pg (27-33); Mean Corpuscular Volume 84.9 fl (85-98); Mean Platelet Volume 11.4 fL (7.4-10.4); Monocytes # 0.7 10^3/uL (0.2-0.9); Monocytes % 13.5 %; Neutrophils # 2.63 10^3/uL (1.8-7.7); Neutrophils % 50.1 %; Nucleated Red Blood Cells % 0 %; Platelet Count 216 10^3/cmm (157-399); Red Blood Count 4.23 10^6/uL (3.85-5.65); Red Cell Distribution Width 15.3 % (12.1-15.1); White Blood Count 5.25 10^3/uL (3.29-11.43)
[2023-07-24 18:42] LABS: Vancomycin Trough 21.9 ug/mL (10-15)
[2023-07-24 18:43] LABS: Alanine Aminotransferase 35 U/L (0-33); Albumin Level 3.7 g/dL (3.5-5.2); Alkaline Phosphatase 81 U/L (35-105); Anion Gap 15.2 (5-19); Aspartate Amino Transferase 40 U/L (0-32); Blood Urea Nitrogen 19 mg/dL (6-20); C Reactive Protein 3.1 mg/L (0.0-4.9); Calcium 8.8 mg/dL (8.5-10.5); Carbon Dioxide 24 mmol/L (22-29); Chloride 101 mmol/L (98-107); Globulin 3.5 g/dL (1.3-4.6); Glucose 265 mg/dL (65-115); Osmolality Calculated 294 mOsm/kg (285-295); Potassium 4.2 mmol/L (3.5-5.1); Sodium 136 mmol/L (136-145); Total Bilirubin 0.5 mg/dL (0.15-1.2); Total Protein 7.2 g/dL (6.6-8.7)
== END 2023-07-24 09:11 | disposition home or self-care (01) ==
PROVIDERS: PCP Family Medicine; Visit Provider Student in an Organized Health Care Education/Training Program
DX: M86.671 Other chronic osteomyelitis, right ankle and foot (principal)
CPT/HCPCS: 80053; 80202; 85025; 86140

== ENCOUNTER → 2023-07-25 09:00 | Outpatient (BNVA) | payer MEDICAID, SELFPAY | PROVIDERS: PCP Family Medicine; Visit Provider Nurse Practitioner Family | DX: E11.52 Type 2 diabetes mellitus with diabetic peripheral angiopathy with gangrene (principal); L97.412 Non-pressure chronic ulcer of right heel and midfoot with fat layer exposed | CPT/HCPCS: 11042; A6210 ==

== ENCOUNTER 2023-07-30 18:17 | Outpatient (CLI) | payer MEDICAID, SELFPAY ==
[2023-07-30 19:02] LABS: Basophils # 0.1 10^3/uL (0.0-0.1); Basophils % 1.4 %; Eosinophils # 0.4 10^3/uL (0.0-0.8); Eosinophils % 6.2 %; Lymphocytes # 1.8 10^3/uL (0.8-4.8); Lymphocytes % 26.3 %; Mean Corpuscular Hemoglobin 28.2 pg (27-33); Mean Corpuscular Volume 85.6 fl (85-98); Monocytes # 0.6 10^3/uL (0.2-0.9); Monocytes % 8.7 %; Neutrophils % 57.1 %; Nucleated Red Blood Cells % 0 %; Platelet Count 208 10^3/cmm (157-399); Red Blood Count 4.32 10^6/uL (3.85-5.65); Red Cell Distribution Width 15.2 % (12.1-15.1); White Blood Count 6.65 10^3/uL (3.29-11.43)
[2023-07-30 19:24] LABS: Alanine Aminotransferase 15 U/L (0-33); Albumin Level 3.9 g/dL (3.5-5.2); Alkaline Phosphatase 78 U/L (35-105); Anion Gap 13.3 (5-19); Aspartate Amino Transferase 18 U/L (0-32); Blood Urea Nitrogen 19 mg/dL (6-20); Calcium 8.9 mg/dL (8.5-10.5); Carbon Dioxide 24 mmol/L (22-29); Chloride 99 mmol/L (98-107); Globulin 3.1 g/dL (1.3-4.6); Glomerular Filtration Rate 44.7 mL/min (90-130); Glucose 344 mg/dL (65-115); Osmolality Calculated 290 mOsm/kg (285-295); Potassium 4.3 mmol/L (3.5-5.1); Sodium 132 mmol/L (136-145); Total Bilirubin 0.2 mg/dL (0.15-1.2)
[2023-07-30 19:25] LABS: Vancomycin Trough 15.1 ug/mL (10-15)
== END 2023-07-30 18:18 | disposition home or self-care (01) ==
PROVIDERS: PCP Family Medicine; Visit Provider Student in an Organized Health Care Education/Training Program
DX: M86.671 Other chronic osteomyelitis, right ankle and foot (principal)
CPT/HCPCS: 80053; 80202; 85025; 86140

== ENCOUNTER → 2023-08-01 08:39 | Outpatient (BNVA) | payer MEDICAID, SELFPAY | PROVIDERS: PCP Family Medicine; Visit Provider Nurse Practitioner Family | DX: E11.52 Type 2 diabetes mellitus with diabetic peripheral angiopathy with gangrene (principal); L97.412 Non-pressure chronic ulcer of right heel and midfoot with fat layer exposed; Z09 Encounter for follow-up examination after completed treatment for conditions other than malignant neoplasm | CPT/HCPCS: 11042 ==

== ENCOUNTER 2023-08-06 16:38 | Outpatient (CLI) | payer MEDICAID, SELFPAY ==
[2023-08-06 16:47] LABS: Basophils # 0.1 10^3/uL (0.0-0.1); Basophils % 1.2 %; Eosinophils # 0.4 10^3/uL (0.0-0.8); Eosinophils % 4.3 %; Hematocrit 44.5 % (36-47); Lymphocytes # 1.9 10^3/uL (0.8-4.8); Lymphocytes % 23.3 %; Mean Corpuscular HGB Conc 32.1 g/dL (30-55); Mean Corpuscular Hemoglobin 27.9 pg (27-33); Mean Corpuscular Volume 86.7 fl (85-98); Mean Platelet Volume 12.1 fL (7.4-10.4); Monocytes # 0.6 10^3/uL (0.2-0.9); Monocytes % 7.7 %; Neutrophils # 5.23 10^3/uL (1.8-7.7); Neutrophils % 63.3 %; Nucleated Red Blood Cells % 0 %; Platelet Count 222 10^3/cmm (157-399); Red Blood Count 5.13 10^6/uL (3.85-5.65); Red Cell Distribution Width 15.9 % (12.1-15.1); White Blood Count 8.28 10^3/uL (3.29-11.43)
[2023-08-06 17:09] LABS: Vancomycin Trough 12.7 ug/mL (10-15)
[2023-08-06 17:55] LABS: Alanine Aminotransferase 14 U/L (0-33); Albumin Level 4.4 g/dL (3.5-5.2); Alkaline Phosphatase 87 U/L (35-105); Anion Gap 19.5 (5-19); Aspartate Amino Transferase 20 U/L (0-32); Blood Urea Nitrogen 21 mg/dL (6-20); Calcium 9.5 mg/dL (8.5-10.5); Carbon Dioxide 22 mmol/L (22-29); Chloride 96 mmol/L (98-107); Globulin 4.2 g/dL (1.3-4.6); Glucose 268 mg/dL (65-115); Osmolality Calculated 288 mOsm/kg (285-295); Potassium 4.5 mmol/L (3.5-5.1); Sodium 133 mmol/L (136-145); Total Bilirubin 0.6 mg/dL (0.15-1.2); Total Protein 8.6 g/dL (6.6-8.7)
== END 2023-08-06 16:39 | disposition home or self-care (01) ==
LOC: LAB 16:39
PROVIDERS: PCP Family Medicine; Visit Provider Student in an Organized Health Care Education/Training Program
DX: M86.671 Other chronic osteomyelitis, right ankle and foot (principal)
CPT/HCPCS: 80053; 80202; 85025; 86140

== ENCOUNTER → 2023-08-08 08:55 | Outpatient (BNVA) | payer MEDICAID, SELFPAY | PROVIDERS: PCP Family Medicine; Visit Provider Nurse Practitioner Family | DX: E11.52 Type 2 diabetes mellitus with diabetic peripheral angiopathy with gangrene (principal); L97.412 Non-pressure chronic ulcer of right heel and midfoot with fat layer exposed | CPT/HCPCS: 11042; A6210; A6219 ==

== ENCOUNTER 2023-08-14 09:00 | Outpatient (CLI) | payer MEDICAID, SELFPAY ==
[2023-08-14 15:34] LABS: Basophils # 0.1 10^3/uL (0.0-0.1); Basophils % 1.9 %; Eosinophils # 0.4 10^3/uL (0.0-0.8); Eosinophils % 8.6 %; Hematocrit 46.1 % (36-47); Lymphocytes # 1.3 10^3/uL (0.8-4.8); Lymphocytes % 26.4 %; Mean Corpuscular HGB Conc 31.9 g/dL (30-55); Mean Corpuscular Hemoglobin 27.9 pg (27-33); Mean Corpuscular Volume 87.5 fl (85-98); Monocytes # 0.5 10^3/uL (0.2-0.9); Monocytes % 10.9 %; Neutrophils # 2.49 10^3/uL (1.8-7.7); Nucleated Red Blood Cells % 0 %; Platelet Count 210 10^3/cmm (157-399); Red Blood Count 5.27 10^6/uL (3.85-5.65); Red Cell Distribution Width 15.9 % (12.1-15.1); White Blood Count 4.78 10^3/uL (3.29-11.43)
[2023-08-14 15:48] LABS: Vancomycin Trough 13.6 ug/mL (10-15)
[2023-08-14 15:50] LABS: Alanine Aminotransferase 69 U/L (0-33); Albumin Level 4.8 g/dL (3.5-5.2); Alkaline Phosphatase 96 U/L (35-105); Blood Urea Nitrogen 18 mg/dL (6-20); C Reactive Protein 24.8 mg/L (0.0-4.9); Calcium 9.9 mg/dL (8.5-10.5); Carbon Dioxide 26 mmol/L (22-29); Chloride 99 mmol/L (98-107); Globulin 4.1 g/dL (1.3-4.6); Glucose 123 mg/dL (65-115); Osmolality Calculated 285 mOsm/kg (285-295); Sodium 136 mmol/L (136-145); Total Bilirubin 0.9 mg/dL (0.15-1.2); Total Protein 8.9 g/dL (6.6-8.7)
[2023-08-14 15:55] LABS: Anion Gap 17.1 (5-19); Aspartate Amino Transferase 71 U/L (0-32); Potassium 6.1 mmol/L (3.5-5.1)
== END 2023-08-14 09:12 | disposition home or self-care (01) ==
LOC: LAB 11-14 09:12
PROVIDERS: PCP Family Medicine; Visit Provider Student in an Organized Health Care Education/Training Program
DX: M86.671 Other chronic osteomyelitis, right ankle and foot (principal)
CPT/HCPCS: 80053; 80202; 85025; 86140

== ENCOUNTER → 2023-08-15 09:11 | Outpatient (BNVA) | payer MEDICAID, SELFPAY | PROVIDERS: PCP Family Medicine; Visit Provider Student in an Organized Health Care Education/Training Program | DX: M86.671 Other chronic osteomyelitis, right ankle and foot (principal); L03.115 Cellulitis of right lower limb; E10.9 Type 1 diabetes mellitus without complications; E87.5 Hyperkalemia; I95.9 Hypotension, unspecified; Z45.2 Encounter for adjustment and management of vascular access device | CPT/HCPCS: 36415; 80053; 97597; 99205; A6210 ==

== ENCOUNTER 2023-08-20 16:38 | Outpatient (CLI) | payer MEDICAID, SELFPAY ==
[2023-08-20 16:49] LABS: Basophils # 0.1 10^3/uL (0.0-0.1); Basophils % 1.3 %; Eosinophils # 0.3 10^3/uL (0.0-0.8); Eosinophils % 5.9 %; Hematocrit 39.3 % (36-47); Lymphocytes # 2.5 10^3/uL (0.8-4.8); Lymphocytes % 53.7 %; Mean Corpuscular HGB Conc 31.8 g/dL (30-55); Mean Corpuscular Hemoglobin 28.2 pg (27-33); Mean Corpuscular Volume 88.5 fl (85-98); Mean Platelet Volume 11.8 fL (7.4-10.4); Monocytes # 0.4 10^3/uL (0.2-0.9); Monocytes % 8.1 %; Neutrophils # 1.41 10^3/uL (1.8-7.7); Neutrophils % 30.8 %; Nucleated Red Blood Cells % 0 %; Platelet Count 226 10^3/cmm (157-399); Red Blood Count 4.44 10^6/uL (3.85-5.65); Red Cell Distribution Width 15.6 % (12.1-15.1); White Blood Count 4.58 10^3/uL (3.29-11.43)
[2023-08-20 18:08] LABS: Alanine Aminotransferase 21 U/L (0-33); Albumin Level 3.6 g/dL (3.5-5.2); Alkaline Phosphatase 71 U/L (35-105); Anion Gap 13.8 (5-19); Aspartate Amino Transferase 31 U/L (0-32); Blood Urea Nitrogen 26 mg/dL (6-20); Carbon Dioxide 25 mmol/L (22-29); Chloride 102 mmol/L (98-107); Globulin 3.6 g/dL (1.3-4.6); Glucose 107 mg/dL (65-115); Osmolality Calculated 289 mOsm/kg (285-295); Potassium 3.8 mmol/L (3.5-5.1); Sodium 137 mmol/L (136-145); Total Bilirubin 0.3 mg/dL (0.15-1.2); Total Protein 7.2 g/dL (6.6-8.7)
== END 2023-08-20 16:39 | disposition home or self-care (01) ==
LOC: LAB 16:39
PROVIDERS: PCP Family Medicine; Visit Provider Family Medicine
DX: M86.671 Other chronic osteomyelitis, right ankle and foot (principal)
CPT/HCPCS: 80053; 85025; 86140

== ENCOUNTER 2024-01-29 07:36 | Emergency (ER) | payer MEDICAID, SELFPAY ==
[2024-01-29] VITALS (11 sets, daily range): BP systolic 155–182; BP diastolic 98–121; PULSE 77–88; RESP 16–18; TEMP 36.6; O2SAT 94–100; BMI 27.3
--- NOTE | 2024-01-29 08:12 | CT_ITS ---
WS: [id number] CT LEFT HAND WITH CONTRAST. HISTORY: cellulitis, tenosynovitis Technique: All CT scans at [facility] use at least one of these dose optimization techniques: automated exposure control; mA and/or kV adjustment per patient size (includes targeted exams where dose is matched to clinical indication); or iterative reconstruction. DLP: 114.53 mGy.cm COMPARISON: None available. Omnipaque 350; 100 cc. Large amount of soft tissue edema and cellulitis surrounding the soft tissues of the LEFT hand. Great est amount of soft tissue edema is along the dorsal aspect of the hand and extending distally to invo lve the second and third distal metacarpals and the proximal phalanges. There is an enhancing fluid collection consistent with an abscess along the dorsal hand centered at t he level of the third metacarpal phalangeal joint. This abscess is centered between the second and th ird metacarpals and extends over a length of 3.1 cm and a depth of 1.7 cm. There is additional signif icant soft tissue inflammation surrounding the entire second and third metacarpal heads to the proxim al phalanges. There is additional fluid and probably abscess obliterating the extensor tendons at the level of the second and third metacarpal heads. This fluid collection very closely associated to the bone and grea test involving the second metacarpal phalangeal joint. No osseous destruction is identified and no foreign body. IMPRESSION: 1. Large amount of cellulitis involving the hand. Predominant cellulitis involves the dorsal hand ce ntered at the level of the second and third metacarpals into the proximal second and third phalanges. 2. Focal abscess centered between the dorsal second and third metacarpals and extends distally to th e phalanges. This abscess measures 3.1 x 1.7 cm. 3. Additional fluid suspicious for abscesses along the extensor tendons at the level of the second a nd third metacarpal heads consistent with septic joint and tenosynovitis. Tenosynovitis is greatest i nvolving the second metacarpal.
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
[2024-01-29] MEDS: morphine 4 mg/mL SDV 1 mL 2 MG IVP (08:34)
[2024-01-29] MEDS: vancomycin 1,000 MG in sodium chloride 0.9% 250 ML 250 MG IV (08:35)
[2024-01-29 08:48] LABS: Basophils % 0.7 %; Eosinophils # 0.1 10^3/uL (0.0-0.8); Eosinophils % 1.6 %; Hematocrit 44.7 % (36-47); Lymphocytes # 1.4 10^3/uL (0.8-4.8); Lymphocytes % 23.9 %; Mean Corpuscular HGB Conc 33.1 g/dL (30-55); Mean Corpuscular Hemoglobin 28.8 pg (27-33); Mean Platelet Volume 11.7 fL (7.4-10.4); Monocytes # 0.6 10^3/uL (0.2-0.9); Monocytes % 11.1 %; Neutrophils # 3.56 10^3/uL (1.8-7.7); Neutrophils % 62.3 %; Nucleated Red Blood Cells % 0 %; Platelet Count 266 10^3/cmm (157-399); Red Blood Count 5.14 10^6/uL (3.85-5.65); Red Cell Distribution Width 14.1 % (12.1-15.1)
[2024-01-29] MEDS: tetanus-dipt-pertussis 0.5 mL SDV IM (08:50)
[2024-01-29] MEDS: iohexol 350 mg/mL 500 mL Btl (per mL) IV (09:06)
[2024-01-29 09:07] LABS: Alanine Aminotransferase 11 U/L (0-33); Albumin Level 4.4 g/dL (3.5-5.2); Alkaline Phosphatase 125 U/L (35-105); Aspartate Amino Transferase 21 U/L (0-32); Blood Urea Nitrogen 25 mg/dL (6-20); C Reactive Protein 10.1 mg/L (0.0-4.9); Calcium 9.4 mg/dL (8.5-10.5); Carbon Dioxide 23 mmol/L (22-29); Chloride 94 mmol/L (98-107); Creatinine Clr Calc Pharmacy 47.3325; Globulin 4.2 g/dL (1.3-4.6); Glomerular Filtration Rate 32.6 mL/min (90-130); Glucose 209 mg/dL (65-115); Osmolality Calculated 281 mOsm/kg (285-295); Sodium 130 mmol/L (136-145); Total Bilirubin 0.2 mg/dL (0.15-1.2); Total Protein 8.6 g/dL (6.6-8.7)
[2024-01-29 09:16] LABS: Glucose Point of Care 149 mg/dL (70-110)
[2024-01-29] MEDS: sodium chloride 0.9% 1,000 ML 999 ML IV (09:35)
[2024-01-29] MEDS: morphine 4 mg/mL SDV 1 mL IVP ×3 (10:02→12:14)
[2024-01-29 11:12] LABS: Glucose Point of Care 77 mg/dL (70-110)
[2024-01-29] MEDS: dextrose 10% 250 ML 1000 ML IV (11:24)
--- NOTE | 2024-01-29 11:47 | PC.NURSE ---
PATIENT REPORT CALLED TO WINSTON HOOPER RN AT [facility].
[2024-01-29] MEDS: dextrose 5%-sod chloride 0.45% 1,000 ML 100 ML IV (12:02)
[2024-01-29] MEDS: hyDRALAzine 20 mg/mL INJ 1 mL 10 MG IVP (12:40)
== END 2024-01-29 12:48 | disposition short-term general hospital (02) ==
PROVIDERS: Emergency Provider Family Medicine; PCP Family Medicine
DX: M00.9 Pyogenic arthritis, unspecified (principal); L03.114 Cellulitis of left upper limb; L02.512 Cutaneous abscess of left hand; E10.40 Type 1 diabetes mellitus with diabetic neuropathy, unspecified; F17.210 Nicotine dependence, cigarettes, uncomplicated; Z23 Encounter for immunization
CPT/HCPCS: 36415; 36416; 73201; 80053; 82962; 85025; 86140; 87040; 90471; 90715; 96365; 96366; 96375; 96376; 99285; J0360; J2270; J3370; J7030; J7050; J7799; Q9967

== ENCOUNTER → 2025-04-02 13:13 | Outpatient (BNVA) | payer MEDICAID, SELFPAY | PROVIDERS: PCP Family Medicine; Visit Provider Nurse Practitioner | DX: M25.512 Pain in left shoulder (principal) | CPT/HCPCS: 73030 ==

== ENCOUNTER 2025-04-04 14:34 | Emergency (ER) | payer MEDICAID, SELFPAY ==
[2025-04-04 14:37] VITALS: BP 167/106; PULSE 93; RESP 18; TEMP 36.5; O2SAT 99; BMI 22.5
--- NOTE | 2025-04-04 14:46 | XRR_ITS ---
PROCEDURE INFORMATION: Exam: XR Left Shoulder Exam date and time: 04/04/2025 2:55 PM Age: 45 years old Clinical indication: Injury or trauma; Blunt trauma (contusions or hematomas); Shoulder and arm, upper; Left; Lt shoulder pain post fall x 5 days ago; PT unable to lift/move lt arm at all TECHNIQUE: Imaging protocol: Radiologic exam of the left shoulder. Views: 2 or more views. COMPARISON: CR XR shoulder LT min 2V* [id number] 04/02/2025 1:16 PM FINDINGS: Bones/joints: Normal. Soft tissues: Normal. XR/XR shoulder LT min 2V* [id number] IMPRESSION: No acute findings.
--- NOTE | 2025-04-04 15:12 | XRR_ITS ---
PROCEDURE INFORMATION: Exam: XR Left Humerus Exam date and time: 04/04/2025 3:13 PM Age: 45 years old Clinical indication: Upper arm; Left; Lt shoulder pain post fall x 5 days ago; PT unable to lift/move lt arm at all TECHNIQUE: Imaging protocol: Radiologic exam of the left humerus. Views: 2 or more views. COMPARISON: CR XR shoulder LT min 2V* [id number] 04/04/2025 2:55 PM FINDINGS: Bones/joints: Normal. Lungs: Mild opacity at the left lung base with blunted costophrenic sulcus. Soft tissues: Normal. XR/[place] [id number] IMPRESSION: No acute osseous findings.
--- NOTE | 2025-04-04 15:34 | CTR_ITS ---
PROCEDURE INFORMATION: Exam: CT Cervical Spine Without Contrast Exam date and time: 04/04/2025 3:46 PM Age: 45 years old Clinical indication: Injury or trauma; Fall; Blunt trauma TECHNIQUE: Imaging protocol: Computed tomography of the cervical spine without contrast. Radiation optimization: All CT scans at this facility use at least one of these dose optimization techniques: automated exposure control; mA and/or kV adjustment per patient size (includes targeted exams where dose is matched to clinical indication); or iterative reconstruction. COMPARISON: [place] [id number] 04/04/2025 3:13 PM RADIATION DOSE METRICS: Total DLP (mGy-cm): 199.24 FINDINGS: Bones: No fractures are seen. There is degenerative disc disease at C5-C6 with reactive endplate sclerosis especially involving the inferior C5 body. Anterior spondylosis deformans at this level. Mild spinal stenosis at the C5-C6 level due to minimal disc bulge posteriorly. Lungs: Lung apices are normal. Soft tissues: Unremarkable. CT/CT cervical spin wo con* [id number] IMPRESSION: 1. No acute findings. 2. Degenerative changes at the C5-C6 level.
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
[2025-04-04] MEDS: HYDROcodone-acetaminophen 5-325 mg Tablet 1 TAB PO (15:52)
[2025-04-04 16:00] VITALS: BP 162/101; PULSE 81; RESP 19; O2SAT 96
[2025-04-04 16:30] VITALS: BP 161/101; PULSE 85; O2SAT 96
--- NOTE | 2025-04-07 09:32 | DCPLANNER ---
Message sent to Ortho-Patient presents here with left shoulder pain had some slight neck pain no midline tenderness CT of the neck was normal x-rays here are normal as well will place in a sling will place on pain meds we will follow-up with orthopedics. She understands agrees to plan she is return if worsening.
== END 2025-04-04 16:31 | disposition home or self-care (01) ==
PROVIDERS: Emergency Provider Emergency Medicine; PCP Family Medicine
DX: S49.92XA Unspecified injury of left shoulder and upper arm, initial encounter (principal); E03.9 Hypothyroidism, unspecified; E10.40 Type 1 diabetes mellitus with diabetic neuropathy, unspecified; E10.43 Type 1 diabetes mellitus with diabetic autonomic (poly)neuropathy; K31.84 Gastroparesis; F17.210 Nicotine dependence, cigarettes, uncomplicated; Z79.4 Long term (current) use of insulin; Z79.890 Hormone replacement therapy; Z79.899 Other long term (current) drug therapy; W19.XXXA Unspecified fall, initial encounter
CPT/HCPCS: 72125; 73030; 73060; 99285; J9999

== ENCOUNTER → 2025-04-08 13:15 | Outpatient (BNVA) | payer MEDICAID, SELFPAY | PROVIDERS: PCP Family Medicine; Visit Provider Orthopaedic Surgery | DX: S46.912A Strain of unspecified muscle, fascia and tendon at shoulder and upper arm level, left arm, initial encounter (principal); X58.XXXA Exposure to other specified factors, initial encounter | CPT/HCPCS: 73030; 99203 ==

== ENCOUNTER 2025-04-16 10:08 | Outpatient (CLI) | payer MEDICAID, SELFPAY ==
--- NOTE | 2025-04-16 10:15 | MR_ITS ---
WS: [id number] MRI LEFT SHOULDER NONCONTRAST TECHNIQUE: Sagittal T2, coronal T1, T2 and proton density imaging. Axial gradient PDE imaging. CLINICAL INFORMATION: Shoulder pain COMPARISON: None. FINDINGS: Moderate degenerative arthritis AC joint with a small amount of fluid and edema. Subacromial subdeltoid fluid. Slight impingement on the distal supraspinatus. Supraspinatus and infraspinatus appear intact. Teres minor appears intact. Subscapularis tendon appears intact. Biceps tendon appears intact within the bicipital groove. Normal biceps labral anchor. Intra-articular biceps tendon is intact. Mild degenerative narrowing of the glenohumeral articulation. Small amount of subcoracoid fluid. Normal bone marrow signal in the humerus and glenoid. No acute fractures visualized. MR/MR shoulder LT wo con* [id number] IMPRESSION: 1. Moderate arthritis AC joint with a small amount of subacromial and subdelto id fluid. 2. Rotator cuff appears intact. 3. Biceps tendon appears intact within the bicipital groove. Intra-articular b iceps tendon appears intact. 4. Normal biceps labral anchor. 5. No other acute findings.
== END 2025-04-16 10:09 | disposition home or self-care (01) ==
LOC: RAD 10:09
PROVIDERS: PCP Family Medicine; Visit Provider Orthopaedic Surgery
DX: M19.012 Primary osteoarthritis, left shoulder (principal); R93.7 Abnormal findings on diagnostic imaging of other parts of musculoskeletal system
CPT/HCPCS: 73221

== ENCOUNTER 2025-04-22 14:51 | Outpatient (CLI) | payer MEDICAID, SELFPAY | END 2025-04-22 14:52 | disposition home or self-care (01) | LOC: LAB 04-27 08:28 | PROVIDERS: PCP Family Medicine; Visit Provider Orthopaedic Surgery | DX: M54.2 Cervicalgia (principal) | CPT/HCPCS: 99213 ==

== ENCOUNTER → 2025-05-20 14:41 | Outpatient (BNVA) | payer MEDICAID, SELFPAY | PROVIDERS: PCP Family Medicine; Referring Provider Orthopaedic Surgery; Visit Provider Specialist | DX: S49.92XA Unspecified injury of left shoulder and upper arm, initial encounter (principal); X58.XXXA Exposure to other specified factors, initial encounter | CPT/HCPCS: 95911 ==